=== PATIENT | female | born 1930 | race Caucasian/White ===

== ENCOUNTER 2017-01-28 09:15 | Inpatient (IN) | payer MEDICARE, BC ==
--- NOTE | ~2017-01-28 | CR72 ---
[facility] A Service of [facility] & [facility] RADIOLOGY TEXT RESULTS PATIENT: PATTIE MAYNARD LOCATION: [facility] CICCU3-15 : 31 UNIT #: [id number] AGE: [address]: Bridger White MD SEX: F ORDER DR: [id number] [facility] [address] [place], [place] [address] [id number] E MR#: [id number] Acc #: [id number] NAME: PATTIE MAYNARD : 1930 SEX: F STUDY DATE/TIME: 01/28/2017 9:59 UNIT: [facility] ROOM: STUDY DESCRIPTION: CR Chest Single View Portable Attending Physician: Willard Rizzo M.D. Ordering Physician: Willard Rizzo M.D. Primary Care Physician: Marisela Roberts A.P.R.N. MEDICAL IMAGING REPORT This report is preliminary unless electronic signature is present EXAM Portable chest HISTORY Shortness of air for 6 months but worse today. History of left lung mass removed. COMPARISON 11/29/2016 FINDINGS Portable view of the chest demonstrates left-sided volume loss with shift of mediastinal structures to the left of midline. There is opacification of the lower half of the left lung which may represent a combination of pleural effusion or atelectasis. Pleural effusion is favored as there is also a prominent left apical pleural cap of fluid. Right lung and remaining aerated left lung demonstrates diffuse parenchymal opacity which may represent a combination of interstitial alveolar edema. Probable trace amount of right pleural fluid. Suspected cardiomegaly though cardiac outline somewhat obscured due to shift and left lung opacity. Aortic atherosclerotic change is noted. Single lead pacemaker in place. No visible pneumothorax. Please note recent CT on 11/24/2016 also demonstrate extensive multifocal airspace disease. Dictated by... Sarah Beth Ames M.D. THIS IS AN ELECTRONICALLY VERIFIED REPORT Sarah Beth Ames M.D. at 01/28/2017 3:57 PM MARQUIS/mary TD: 01/28/2017 10:41 [facility] A Service of [facility] & [facility] RADIOLOGY TEXT RESULTS PATIENT: PATTIE MAYNARD LOCATION: [place] [id number] : 31 UNIT #: [id number] AGE: [address]: Bridger White MD SEX: F ORDER DR: JOB #: [id number] MEDICAL IMAGING REPORT Page 1 of 1 COPY
--- NOTE | ~2017-01-28 | CR7 ---
[facility] A Service of [facility] & [facility] RADIOLOGY TEXT RESULTS PATIENT: PATTIE MAYNARD LOCATION: [address]-15 : 31 UNIT #: [id number] AGE: [address]: Bridger White MD SEX: F ORDER DR: [id number] [facility] [address] [place], [place] [address] [id number] I MR#: [id number] Acc #: [id number] NAME: PATTIE MAYNARD : 1930 SEX: F STUDY DATE/TIME: 02/06/2017 6:52 UNIT: [facility] ROOM: [facility] STUDY DESCRIPTION: CR Abdomen Single AP View Attending Physician: Bridger White M.D. Ordering Physician: Bridger White M.D. Primary Care Physician: Marisela Roberts A.P.R.N. MEDICAL IMAGING REPORT This report is preliminary unless electronic signature is present EXAM KUB HISTORY High residual abdominal pain, possible ileus, KUB is obtained. Examination shows dilated small bowel loops filling the abdomen. There is contrast media identified in the rectosigmoid. Nasoenteric tube is in the stomach. Postsurgical changes are seen in the left upper and right upper quadrants. CONCLUSION Abnormal bowel gas pattern showing dilated small bowel loops filling the abdomen. There is gas and contrast media into the rectosigmoid. The findings favor adynamic ileus over obstruction. Dictated by... Andrea Bentley M.D. THIS IS AN ELECTRONICALLY VERIFIED REPORT Andrea Bentley M.D. at 02/06/2017 5:02 PM Maxim TD: 02/06/2017 09:58 JOB #: [id number] MEDICAL IMAGING REPORT Page 1 of 1 COPY
--- NOTE | ~2017-01-28 | CO ---
Unit #: [id number] #: [id number] Patient: PATTIE MAYNARD [id number] [address] [place], [place] [address] [id number] I MR#: [id number] NAME: PATTIE MAYNARD ROOM: [facility] Age: 86 Sex: F Admission Date: 01/28/2017 : 1930 Attending Physician: Bridger White M.D. Primary Care Physician: Marisela Roberts A.P.R.N. Consultation Date: 01/28/2017 CONSULTATION REPORT REASON FOR CONSULTATION Critical care management, respiratory failure. HISTORY OF PRESENT ILLNESS An 86-year-old female with a past medical history significant for congestive heart failure, hypertension, COPD, history of pulmonary embolism, and atrial fibrillation, presents with the complaint of shortness of breath and was found to be in respiratory failure and severe respiratory acidosis. She is currently awake on BiPAP and following commands. She is a Do Not Resuscitate. REVIEW OF SYSTEMS Unobtainable. PAST MEDICAL HISTORY As described above. SOCIAL HISTORY Nonsmoker, no alcohol, and no drug abuse. FAMILY HISTORY None as per record. MEDICATIONS As per MAR and have been reviewed. ALLERGIES Reviewed. PHYSICAL EXAMINATION VITAL SIGNS: Currently temperature is 98, pulse 75, respirations 29, and blood pressure is 138/45. NEUROLOGICAL: Awake, alert, and following commands. CARDIOVASCULAR: S1 plus S2. RESPIRATORY: Bilateral air entry, bilateral mild rhonchi. GASTROINTESTINAL: Nontender and soft. Bowel sounds positive. EXTREMITIES: No edema. DIAGNOSTIC STUDIES LABORATORY: Reviewed. IMAGING: Reviewed. ASSESSMENT Unit #: [id number] #: [id number] Patient: PATTIE MAYNARD 1. Acute hypoxic, hypercapnic respiratory failure. 2. Acute exacerbation of congestive heart failure. 3. Possible pneumonia. 4. Anemia. 5. Critically ill patient. PLAN At this point, my plan is to continue BiPAP support, repeat blood gas, add IV steroids, and continue IV antibiotic and diuretics. Cardiology following. GI and DVT prophylaxis. Patient is a Do Not Resuscitate. Please see orders for detailed plans. Total critical care time 65 minutes. Thank you very much for this consultation. Dictated by... Tita Nair M.D. MOHAMUD/oumou TD: 01/28/2017 16:40 JOB #: [id number] CONSULTATION REPORT Page 1 of 1 X Tita Nair MD CONSULTATION REPORT
--- NOTE | ~2017-01-28 | CR72 ---
[facility] A Service of [facility] & [facility] RADIOLOGY TEXT RESULTS PATIENT: PATTIE MAYNADR LOCATION: [place] [id number] : 31 UNIT #: [id number] AGE: [address]: Bridger White MD SEX: F ORDER DR: [id number] [facility] [address] [place], [place] [address] [id number] I MR#: [id number] Acc #: [id number] NAME: PATTIE MAYNARD : 1930 SEX: F STUDY DATE/TIME: 02/04/2017 5:45 UNIT: [facility] ROOM: [facility] STUDY DESCRIPTION: CR Chest Single View Portable Attending Physician: Bridger White M.D. Ordering Physician: Tita Nair M.D. Primary Care Physician: Marisela Roberts A.P.R.N. MEDICAL IMAGING REPORT This report is preliminary unless electronic signature is present EXAM Portable chest. INDICATIONS Respiratory failure, follow up. PROCEDURE Frontal view chest. COMPARIOSN 02/02/2017. FINDINGS Heart size stable. Persistent left basilar opacity and patchy opacities throughout the right lung. No new dense consolidation or pneumothorax. IMPRESSION Stable. Dictated by... Jose Rowland M.D. THIS IS AN ELECTRONICALLY VERIFIED REPORT Jose Rowland M.D. at 02/05/2017 9:58 PM EED/gz TD: 02/04/2017 09:10 JOB #: [id number] MEDICAL IMAGING REPORT Page 1 of 1 COPY
--- NOTE | ~2017-01-28 | CR72 ---
[facility] A Service of [facility] & [facility] RADIOLOGY TEXT RESULTS PATIENT: PATTIE MAYNARD LOCATION: [place] [address]15 : 31 UNIT #: [id number] AGE: [address]: Bridger White MD SEX: F ORDER DR: [id number] [facility] [address] [place], [place] [address] [id number] I MR#: [id number] Acc #: [id number] NAME: PATTIE MAYNARD : 1930 SEX: F STUDY DATE/TIME: 02/06/2017 4:45 UNIT: [facility] ROOM: [facility] STUDY DESCRIPTION: CR Chest Single View Portable Attending Physician: Bridger White M.D. Ordering Physician: Tita Nair M.D. Primary Care Physician: Marisela Roberts A.P.R.N. MEDICAL IMAGING REPORT This report is preliminary unless electronic signature is present EXAM Portable chest INDICATION Respiratory failure for the past 9 days. PROCEDURE Frontal view chest COMPARISON 02/05/2017 FINDINGS Heart size is stable. Persistent left basilar opacity and increasing right effusion. No visible pneumothorax. IMPRESSION Increasing right effusion. Persistent left basilar opacity. Dictated by... Jose Rowland M.D. THIS IS AN ELECTRONICALLY VERIFIED REPORT Jose Rowland M.D. at 02/06/2017 10:13 PM NOLAN/carlos TD: 02/06/2017 10:09 JOB #: [id number] MEDICAL IMAGING REPORT Page 1 of 1 COPY
--- NOTE | ~2017-01-28 | CR72 ---
[facility] A Service of [facility] & [facility] RADIOLOGY TEXT RESULTS PATIENT: PATTIE MAYNARD LOCATION: [place] [address]15 : 31 UNIT #: [id number] AGE: [address]: Bridger White MD SEX: F ORDER DR: [id number] [facility] [address] [place], [place] [address] [id number] I MR#: [id number] Acc #: [id number] NAME: PATTIE MAYNARD : 1930 SEX: F STUDY DATE/TIME: 01/29/2017 4:14 UNIT: [facility] ROOM: [facility] STUDY DESCRIPTION: CR Chest Single View Portable Attending Physician: Bridger White M.D. Ordering Physician: Tita Nair M.D. Primary Care Physician: Marisela Roberts A.P.R.N. MEDICAL IMAGING REPORT This report is preliminary unless electronic signature is present EXAM Single view chest INDICATIONS Respiratory failure. FINDINGS Single portable AP view of the chest compared to 01/28/2017. The heart is enlarged. There is background COPD. Bibasilar airspace opacities and/or pleural effusions, left greater than right are fairly similar to the prior study. No pneumothorax. IMPRESSION No significant change. Dictated by... Chad Friedman M.D. THIS IS AN ELECTRONICALLY VERIFIED REPORT Chad Friedman M.D. at 01/31/2017 12:23 AM ALYSON/beny TD: 01/29/2017 07:44 JOB #: [id number] MEDICAL IMAGING REPORT Page 1 of 1 COPY
--- NOTE | ~2017-01-28 | CO ---
Unit #: [id number] #: [id number] Patient: PATTIE MAYNARD [id number] [place] [id number] [place], [place] [address] [id number] I MR#: [id number] NAME: PATTIE MAYNARD ROOM: [facility] Age: 86 Sex: F Admission Date: 01/28/2017 : 1930 Attending Physician: Bridger White M.D. Primary Care Physician: Marisela Roberts A.P.R.N. CONSULTATION REPORT REASON FOR CONSULTATION Renal failure and hypernatremia. HISTORY OF PRESENT ILLNESS The patient is an 86-year-old female with a significant past medical history of cardiomyopathy but recent ejection fraction around 55% but mainly diastolic heart failure, mainly admitted to the hospital because of shortness of breath with some chest discomfort. The patient's baseline creatinine is around 1. It was 1.3 but sodium increased to 151 recently. The patient is still short of breath and she is on home oxygen. Recently, she also had a Dobbhoff tube placed yesterday because there is a likelihood of some aspiration going on. She also had some cough which was mainly nonproductive. Her heart rate was increased and she has atrial fibrillation with rapid ventricular rate and she was started on Cardizem drip too. She has a history of hypertension and blood pressure is stable. When I saw her, she was a little bit confused but she was complaining of some dry mucous membranes. She wanted to drink some Coke. Her BNP level was also elevated and no repeat level was done since admission. PAST MEDICAL HISTORY Significant for: 1. Coronary artery disease. 2. Chronic kidney disease. 3. Congestive heart failure, ejection fraction 30% in the past, now 55% with diastolic dysfunction. 4. History of atrial fibrillation, not on anticoagulation because of chronic anemia and GI bleed. 5. History of hypertension. 6. History of hypothyroidism. 7. History of peptic ulcer disease. 8. History of atrial fibrillation with rapid ventricular rate. 9. COPD. PAST SURGICAL HISTORY Significant for: 1. Pacemaker insertion. 2. History of angioplasty and stent placement. 3. History of colon resection. 4. History of carotid endarterectomy on the right side. SOCIAL HISTORY The patient lives at home. Her family lives close by. She used to smoke but she quit two years back. Unit #: [id number] #: [id number] Patient: PATTIE MAYNARD FAMILY HISTORY Noncontributory. MEDICATIONS Home medications were reviewed. They did include: 1. Lortab. 2. Symbicort. 3. Metoprolol. 4. Lasix. 5. Plavix. 6. Lipitor. 7. Carvedilol. 8. Synthroid. Not on SHWETHA inhibitor or angiotensin receptor mian. PHYSICAL EXAMINATION GENERAL: The patient is an elderly female, not in any acute distress. VITAL SIGNS: Last blood pressure is 155/60, pulse is around 85, temperature 98, respiratory rate is 18. HEAD/NECK: Pupils are reactive to light. Mucous membrane is dry. NECK: Supple. CHEST: The patient has bilateral air entry with rhonchi. No crackles, no wheeze. HEART: Irregular rate and rhythm with S1 and S2 audible, with mild systolic murmur. CHEST: Bilateral rhonchi with some fine crackles at the bases. ABDOMEN: Patient has a midline scar. Pulses are positive. No guarding, no rigidity. EXTREMITIES: Mild edema in both lower extremities. DIAGNOSTIC STUDIES LABORATORY: Labs show patient's sodium level is 151, potassium 3.9, bicarb 36, glucose 372, creatinine 1.1, albumin 3, total protein 5.2. Hemoglobin is 8.2. White cell count 3.6. IMAGING: Chest x-ray showed there are increased interstitial markings with bilateral airspace disease. ASSESSMENT AND PLAN 1. Hypernatremia. 2. Congestive heart failure: At this time, patient does have some bilateral infiltrate but patient has no significant edema so, clinically, there is some volume overload but lab nagel, patient has some contraction alkalosis with hyponatremia. 3. Diastolic heart failure, ejection fraction 55%. 4. Chronic kidney disease, likely stage 3. 5. Anemia, may be because of chronic kidney disease or may be because of history of peptic ulcer disease and gastrointestinal bleed. Workup is being done by GI. 6. Chronic kidney disease stage 3. 7. Contraction alkalosis with respiratory acidosis. PLAN Patient with significant hypernatremia. Sodium level is also high so looking at patient's labs, the patient seems to be volume depleted with contraction alkalosis. Increase sodium level but, clinically, patient does have bilateral lung infiltrate with some shortness of breath and Unit #: [id number] #: [id number] Patient: PATTIE MAYNARD diastolic heart failure. At this time, diuresis will be continued but, instead of loop diuretics, I would use thiazide diuretics and Diamox. That will help to get rid of some solutes and make sodium level better. (1) will be given at this time to improve patient's sodium level. Follow up with a BNP level, repeat labs tomorrow morning. Following with a urine output closely. If needed, instead of hydrochlorothiazide, metolazone can be given because that is much more potent thiazide diuretics than hydrochlorothiazide. Thank you for letting me evaluate this patient. Dictated by... Padmini Caicedo TD: 02/05/2017 10:25 JOB #: [id number] CONSULTATION REPORT Page 1 of 1 X Justo Everett MD X CONSULTATION REPORT
--- NOTE | ~2017-01-28 | OR ---
Unit #: [id number] #: [id number] Patient: PATTIE MAYNARD [id number] [address] [place], [place] [address] [id number] I MR#: [id number] NAME: PATTIE MAYNARD ROOM: [facility] Date of Procedure: 02/04/2017 Admission Date: 01/28/2017 Surgeon: Armando Lynch M.D. : 1930 Attending Physician: Bridger White M.D. Primary Care Physician: Marisela Roberts A.P.R.N. OPERATIVE REPORT ATTENDING PHYSICIAN Bridger White M.D PRIMARY CARE PHYSICIAN Marisela Roberts A.P.R.N. INDICATIONS FOR PROCEDURE Esophageal dysmotility and aspiration risk on a swallow evaluation. PROCEDURES PERFORMED Upper gastrointestinal endoscopy. POSTOPERATIVE DIAGNOSES Completely normal examination up to third part of duodenum. The patient did not have any mucosal abnormalities or whatsoever. The esophageal peristalsis was suggestive of somewhat chaotic hypertensive movements, but overall appearances were within the realm of normality. RECOMMENDATIONS A Dobhoff tube was placed at the end of the procedure for feeding. If the patient has significant aspiration risk, than one needs to consider possibility of enteral feeding using a PEG-tube. This will be discussed with the patient's family and with family doctor. SEDATION USED MAC. DESCRIPTION OF PROCEDURE Following detailed explanation of potential risks and complications of an upper endoscopy, namely perforation, bleeding, complication related to sedation, the patient was brought to GI lab and laid in the left lateral decubitus position. The procedure was done in intensive care unit at the patient's bedside. Lubricated tip of the Olympus video upper endoscope was passed through the bite block into the proximal esophagus under direct vision. The entire esophageal mucosa was examined and appeared normal. Z-line was nicely demarcated, there being no esophagitis or hiatus hernia. The scope was then advanced into the gastric cavity and the latter was insufflated. Mucosa of the fundus, body, and antrum was examined and appeared unremarkable. Pylorus was intubated with visualization of the normal duodenal bulb and second and third part of the duodenum. Upon withdrawal and retroflexion, incisura, cardia, and greater curve were examined and no additional findings noted. The scope was then withdrawn Unit #: [id number] #: [id number] Patient: MAYNARD,TEMPEST into the distal esophagus. The entire esophageal mucosa was examined all the way up to pharynx. No additional findings noted. The patient tolerated the procedure without any postprocedure complications. Dictated by... Padmini Nagel/joe TD: 02/05/2017 14:26 JOB #: [id number] CC: Padmini Garg A.P.R.N. Kusum Nigam, M.D. OPERATIVE REPORT Page 1 of 1 X Armando Lynch MD X PROCEDURE OPERATIVE NOTE
--- NOTE | ~2017-01-28 | CR72 ---
[facility] A Service of [facility] & [facility] RADIOLOGY TEXT RESULTS PATIENT: PATTIE MAYNARD LOCATION: [place] [address]- : [birth year] UNIT #: [id number] AGE: [address]: Bridger White MD SEX: F ORDER DR: [id number] [facility] [address] [place], [place] [address] [id number] I MR#: [id number] Acc #: [id number] NAME: PATTIE MAYNARD : 1930 SEX: F STUDY DATE/TIME: 02/10/2017 10:23 UNIT: [facility] ROOM: [facility] STUDY DESCRIPTION: CR Chest Single View Portable Attending Physician: Bridger White M.D. Ordering Physician: Poppy Tolliver A.P.R.N. Primary Care Physician: Marisela Roberts A.P.R.N. MEDICAL IMAGING REPORT This report is preliminary unless electronic signature is present EXAM Portable chest, 02/10 INDICATIONS Shortness of air. Follow up infiltrates and effusions. COMPARISON 02/09 FINDINGS Today's portable view of the chest shows no significant change from yesterday's study. There are uultz-ci-uppjkbrh bilateral effusions with bibasilar atelectasis. The enteric tube and PIC catheter and pacemaker are all stable. Dictated by... Margarito Goldsmith M.D. THIS IS AN ELECTRONICALLY VERIFIED REPORT Margarito Goldsmith M.D. at 02/11/2017 7:27 AM FEL/psc TD: 02/10/2017 17:20 JOB #: [id number] MEDICAL IMAGING REPORT Page 1 of 1 COPY
--- NOTE | ~2017-01-28 | CR72 ---
[facility] A Service of [facility] & [facility] RADIOLOGY TEXT RESULTS PATIENT: PATTIE MAYNARD LOCATION: [place] [address] : [birth year] UNIT #: [id number] AGE: [address]: Bridger White MD SEX: F ORDER DR: [id number] [facility] [address] [place], [place] [address] [id number] I MR#: [id number] Acc #: [id number] NAME: PATTIE MAYNARD : 1930 SEX: F STUDY DATE/TIME: 01/30/2017 4:30 UNIT: [facility] ROOM: [facility] STUDY DESCRIPTION: CR Chest Single View Portable Attending Physician: Bridger White M.D. Ordering Physician: Tita Nair M.D. Primary Care Physician: Marisela Roberts A.P.R.N. MEDICAL IMAGING REPORT This report is preliminary unless electronic signature is present EXAM Single view chest INDICATIONS Respiratory failure. Congestive heart failure. FINDINGS Single portable AP view of the chest compared to 01/29/2017. Heart is enlarged. There is increasing interstitial opacities in both lungs. There is a left basilar airspace opacity/effusion. No pneumothorax. IMPRESSION Slight increase in bilateral interstitial opacities suggesting increasing pulmonary edema and/or an atypical infection. Dictated by... Chad Friedman M.D. THIS IS AN ELECTRONICALLY VERIFIED REPORT Chad Friedman M.D. at 01/31/2017 12:20 AM Avery TD: 01/30/2017 06:20 JOB #: [id number] MEDICAL IMAGING REPORT Page 1 of 1 COPY
--- NOTE | ~2017-01-28 | EKG ---
PATIENT: PATTIE MAYNARD UNIT #: [id number] Ventricular Rate: 62 BPM Atrial Rate: 208 BPM QRS Duration: 118 ms Q-T Interval: 380 ms QTC Calculation(Bezet): 385 ms Calculated R [place]: -64 degrees Calculated T [place]: 116 degrees Diagnosis Line: Ventricular-paced rhythm with intrinsic complexes Diagnosis Line: Abnormal ECG Diagnosis Line: When compared with ECG of 14-MAR-2016 13:40, Diagnosis Line: Vent. rate has decreased BY 13 BPM Diagnosis Line: Confirmed by ADELSO AWAN MD ([id number]) on Diagnosis Line: 01/30/2017 8:44:09 AM INTERPRETING MD: LV PENDLETON
--- NOTE | ~2017-01-28 | CR63 ---
[facility] A Service of [facility] RADIOLOGY TEXT RESULTS PATIENT: PATTIE MAYNARD LOCATION: [facility] 548-01 : 31 UNIT #: [id number] AGE: [address]: Bridger White MD SEX: F ORDER DR: [id number] [facility] [address] [place], [place] [address] [id number] I MR#: [id number] Acc #: [id number] NAME: PATTIE MAYNARD : 1930 SEX: F STUDY DATE/TIME: 02/09/2017 8:59 UNIT: [facility] ROOM: [facility] STUDY DESCRIPTION: CR Chest 2 View Attending Physician: Bridger White M.D. Ordering Physician: Tita Nair M.D. Primary Care Physician: Marisela Roberts A.P.R.N. MEDICAL IMAGING REPORT This report is preliminary unless electronic signature is present EXAM PA and lateral chest radiograph. INDICATION Shortness of breath starting today. Patient has a history of congestive heart failure. Atrial fibrillation. Coronary artery disease and prior pulmonary embolus. FINDINGS Comparison is made to a prior study from February 06, 2017. Cardiomegaly and vascular congestion are unchanged. Right-sided PICC line extends into the superior vena cava. Patient has a weighted enteric feeding tube, although, I cannot see the distal tip. Left-sided pacemaker is present. No pneumothorax is identified. Patient has bilateral pleural effusions with more extensive consolidation noted at the lung bases bilaterally. Some of this may reflect compressive atelectasis with possibly superimposed infiltrates not excluded. Patient is noted to have compression deformity. What I think is probably T12 and L1 and even L3 incompletely evaluated on this study. However, these findings were also present on the prior CT from November of 2016. IMPRESSION 1. Cardiomegaly and vascular congestion. 2. Bilateral pleural effusions. 3. Bibasilar consolidation which may reflect some compressive atelectasis. Possibility of superimposed infection is not excluded. Dictated by... Gloria Urbina M.D. THIS IS AN ELECTRONICALLY VERIFIED REPORT Gloria Urbina M.D. at 02/12/2017 1:23 PM [facility] A Service of [facility] RADIOLOGY TEXT RESULTS PATIENT: PATTIE MAYNARD LOCATION: [facility] 548-01 : 31 UNIT #: [id number] AGE: [address]: Bridger White MD SEX: F ORDER DR: Rosario TD: 02/09/2017 17:15 JOB #: [id number] MEDICAL IMAGING REPORT Page 1 of 1 COPY
--- NOTE | ~2017-01-28 | CR72 ---
[facility] A Service of [facility] & [facility] RADIOLOGY TEXT RESULTS PATIENT: PATTIE MAYNARD LOCATION: [place] [id number] : 31 UNIT #: [id number] AGE: [address]: Bridger White MD SEX: F ORDER DR: [id number] [facility] [address] [place], [place] [address] [id number] I MR#: [id number] Acc #: [id number] NAME: PATTIE MAYNARD : 1930 SEX: F STUDY DATE/TIME: 02/05/2017 3:30 UNIT: [facility] ROOM: [facility] STUDY DESCRIPTION: CR Chest Single View Portable Attending Physician: Bridger White M.D. Ordering Physician: Tita Nair M.D. Primary Care Physician: Marisela Roberts A.P.R.N. MEDICAL IMAGING REPORT This report is preliminary unless electronic signature is present EXAM Portable chest INDICATION Respiratory failure PROCEDURE Frontal view chest COMPARISON 02/04/2017 FINDINGS Heart size unchanged. Persistent left basilar opacity. Right effusion unchanged. No visible pneumothorax. IMPRESSION Stable. Dictated by... Jose Rowland M.D. THIS IS AN ELECTRONICALLY VERIFIED REPORT Jose Rowland M.D. at 02/05/2017 9:53 PM Lorenza TD: 02/05/2017 08:59 JOB #: [id number] MEDICAL IMAGING REPORT Page 1 of 1 COPY
--- NOTE | ~2017-01-28 | CR72 ---
[facility] A Service of [facility] & [facility] RADIOLOGY TEXT RESULTS PATIENT: PATTIE MAYNARD LOCATION: [place] [address]-15 : 31 UNIT #: [id number] AGE: [address]: Bridger White MD SEX: F ORDER DR: [id number] [facility] [address] [place], [place] [address] [id number] I MR#: [id number] Acc #: [id number] NAME: PATTIE MAYNARD : 1930 SEX: F STUDY DATE/TIME: 01/31/2017 3:54 UNIT: [facility] ROOM: [facility] STUDY DESCRIPTION: CR Chest Single View Portable Attending Physician: Bridger White M.D. Ordering Physician: Bridger White M.D. Primary Care Physician: Marisela Roberts A.P.R.N. MEDICAL IMAGING REPORT This report is preliminary unless electronic signature is present EXAM Single view chest INDICATION COPD exacerbation. Pleural effusion. FINDINGS Single portable AP view of the chest compared to 01/30/2017. Heart is enlarged. There is increased interstitial markings in both lungs. Small bilateral pleural effusions are unchanged. No pneumothorax. IMPRESSION No significant change. Dictated by... Chad Friedman M.D. THIS IS AN ELECTRONICALLY VERIFIED REPORT Chad Friedman M.D. at 01/31/2017 5:43 AM ALYSON/krissy TD: 01/31/2017 04:48 JOB #: [id number] MEDICAL IMAGING REPORT Page 1 of 1 COPY
--- NOTE | ~2017-01-28 | CO ---
Unit #: [id number] #: [id number] Patient: PATTIE MAYNARD [id number] [address] [place], [place] [address] [id number] I MR#: [id number] NAME: PATTIE MAYNARD ROOM: [facility] Age: 86 Sex: F Admission Date: 01/28/2017 : 1930 Attending Physician: Bridger White M.D. Primary Care Physician: Marisela Roberts A.P.R.N. Consultation Date: 01/28/2017 CONSULTATION REPORT REASON FOR CONSULTATION Elevated troponin. HISTORY OF PRESENT ILLNESS This is an 86-year-old white female, who is well known to Dr. Hummel, who has a history of angioplasty and stent placement to the right coronary artery in 2007. In 2013, she had drug-eluting stents placed to the circumflex and mid LAD. Last cardiac catheterization was in 05/2015, where her stents were patent. She is known to have permanent atrial fibrillation and permanent pacemaker placement for sick sinus syndrome. The patient is admitted with acute respiratory failure. There is no family currently available at that time, but according to the emergency room records, she came in for worsening shortness of breath over the past 2 days. At the time of our exam, the patient was unresponsive and in acute distress. Her chest x-ray shows a large left pleural effusion. The patient was placed on BiPAP. BNP 690. She had elevation of troponin for which Cardiology was consulted of 0.68 at the time of admission. Her EKG shows no acute ischemic changes. PAST MEDICAL HISTORY 1. Angioplasty and stent to the right coronary artery in 2007. 2. Cardiac catheterization on 03/05/2014 shows left main normal. Ramus intermedius branch normal. Mid LAD 80%. Circumflex artery 90% between the first and second marginal branches. There was 50% stenosis distal to the second marginal branch. 3. Status post angioplasty with drug-eluting stents to the circumflex and mid LAD on 03/05/2014. 4. Cardiac catheterization on 06/01/2015 shows patent stents in the proximal and mid LAD as well as the right coronary artery. Circumflex artery was normal. 5. 2D echocardiogram on 11/23/2016 at [facility] showed an ejection fraction equal to 55% to 60% with moderate mitral regurgitation, moderate tricuspid regurgitation, and right ventricular systolic pressure of 55 mmHg. 6. Cardiac catheterization on 11/23/2016 at [facility], which showed left main normal. LAD mid stent widely patent. Mid LAD 30%. Circumflex artery proximal 40%. First obtuse marginal branch mid vessel stenosis of 30%. Right coronary artery with focal ISR. Mid right coronary artery 40%. No LV-gram. 7. Permanent atrial fibrillation, not on anticoagulation secondary to history of GI bleed. 8. Sick-sinus syndrome, status post permanent pacemaker ([employer]). 9. Hypertension. Unit #: [id number] #: [id number] Patient: PATTIE MAYNARD 10. Hyperlipidemia. 11. Chronic systolic heart failure with an ejection fraction of 30% to 35% in 2013, improved to 55% to 60% in 11/2016. 12. Hypothyroidism. 13. Chronic kidney disease. 14. COPD, on home oxygen. 15. Descending thoracic dilatation 4.4 cm and infrarenal abdominal aortic dilatation 2.7 mm in 02/2014. 16. Former smoker. 17. Peripheral vascular disease, status post left carotid endarterectomy. PAST SURGICAL HISTORY 1. Permanent pacemaker in 06/2014. 2. Carotid endarterectomy in 10/2011. 3. Colon resection. SOCIAL HISTORY The patient has been living with her son. She quit smoking 3 years ago, previously smoked half a pack of cigarettes a day. No records of illicit drug or alcohol use. FAMILY HISTORY Negative for coronary artery disease. ALLERGIES No known drug allergies. HOME MEDICATIONS Furosemide 20 mg b.i.d., levothyroxine 0.05 mg daily, aspirin 81 mg daily, Spiriva 1 inhalation daily, Combivent per mini nebs q.i.d. p.r.n., Lortab 10/325 one q.i.d. p.r.n., nitroglycerin 0.4 mg sublingual p.r.n., Protonix 40 mg daily, potassium chloride 10 mEq daily, Paxil 20 mg daily, Carafate 1 g t.i.d., trazodone 100 mg q.h.s., Plavix 75 mg daily, digoxin 0.125 mg daily, 10 mg t.i.d. REVIEW OF SYSTEMS Unable to obtain, because the patient is unresponsive. PHYSICAL EXAMINATION VITAL SIGNS: Blood pressure 179/80, heart rate 62. GENERAL: This is an 86-year-old white female, who is in acute respiratory distress. NEUROLOGIC: She is currently unresponsive. NECK: Trachea is midline. No thyromegaly or lymphadenopathy. With mild jugular venous distention. HEART: S1 and S2. Heart sounds are normal. No murmurs. No rubs or clicks. Irregularly irregular rhythm. LUNGS: With diminished breath sounds in the left lung. There are rales in both lung bases. ABDOMEN: Soft and nontender with bowel sounds are diminished. EXTREMITIES: Without leg edema. SKIN: Phan and dry. DIAGNOSTIC STUDIES LABORATORY RESULTS: Glucose 147, BUN 17, creatinine 1.0, sodium 138, potassium 4.1. White count 6.0, hemoglobin 9.9, hematocrit 31.5, platelet count 180. Troponin 0.68. Digoxin level of 2.8. BNP 652. Unit #: [id number] #: [id number] Patient: PATTIE MAYNARD IMAGING STUDIES: Chest x-ray noted for a large left pleural effusion. CARDIOVASCULAR STUDIES: EKG shows ventricularly paced rhythm. IMPRESSION 1. Acute hypoxic respiratory failure. 2. Severe chronic obstructive pulmonary disease with exacerbation. 3. Elevated troponin peak of 0.68 questionable type 2 non-ST segment myocardial infarction. 4. History of multiple percutaneous coronary intervention stents in the past. 5. Preserved left ventricular systolic function with an ejection fraction of 60%. 6. Acute on chronic systolic heart failure. 7. Digoxin toxicity. 8. Permanent atrial fibrillation. 9. Hypertension. 10. Hyperlipidemia. PLAN 1. Cardiology was consulted for elevated troponin. We will continue to trend troponin. Her last cardiac stent was widely patent with nonobstructive disease in 11/2016. 2. Lipid profile will be added and statin will be given once able to take oral. 3. Anticoagulate with aspirin and Lovenox. 4. The patient has a large left pleural effusion on chest x-ray, will need thoracentesis. 5. Continue on IV diuretics. 6. BiPAP support for respiratory failure. 7. Repeat digoxin level in the a.m. 8. We will follow the patient with you. Thank you for allowing us to assist with this patient's care. Dictated by... Jamel Thacker A.P.R.N. for RobertoPadmini May/joe TD: 01/30/2017 06:33 JOB #: [id number] CC: Marisela Roberts A.P.R.N. CONSULTATION REPORT Page 1 of 1 X Jamel Thacker APRN CONSULTATION REPORT
--- NOTE | ~2017-01-28 | CO ---
Unit #: [id number] #: [id number] Patient: PATTIE MAYNARD [id number] [address] [address] [id number] I MR#: [id number] NAME: PATTIE MAYNARD ROOM: [facility] Age: 86 Sex: F Admission Date: 01/28/2017 : 1930 Attending Physician: Bridger White M.D. Primary Care Physician: Marisela Roberts A.P.R.N. Consultation Date: 02/04/2017 CONSULTATION REPORT REASON FOR CONSULTATION Abnormal esophageal motility and high risk of aspiration on a swallow evaluation. HISTORY OF PRESENT ILLNESS Ms. Maynard is a very pleasant 86-year-old white female who has a longstanding history of coronary artery disease. The patient was admitted with acute respiratory failure and ammonia and elevated troponin on a background of coronary artery disease and ischemic cardiomyopathy and CHF. During her swallow evaluation, she has been found to have silent aspiration and high degree of esophageal dysmotility. In fact, swallow evaluation suggests the patient has very little esophageal motility. It is possible that the pneumonia might be a consequence of the latter. PAST MEDICAL HISTORY Significant for: 1. History of hypertension. 2. Hyperlipidemia. 3. Hypothyroidism. 4. COPD. 5. Atrial fibrillation. 6. Peripheral arterial disease. 7. Congestive heart failure. 8. Ischemic cardiomyopathy. 9. Sick sinus syndrome, status post pacemaker placement. 10. Coronary artery disease, status post PTCA and stent placement. PREVIOUS SURGERIES Included: 1. Partial colon resection. 2. Left carotid endarterectomy. 3. PCIs and stent placement. 4. Permanent pacemaker placement. MEDICATIONS Her medications at home include: 1. Lasix. 2. Levothyroxine. 3. Aspirin. 4. Spiriva. 5. Combivent. 6. Lortab. 7. Nitroglycerin. 8. Protonix. Unit #: [id number] #: [id number] Patient: PATTIE MAYNARD 9. Potassium chloride. 10. Paxil. 11. Carafate. 12. Trazodone. 13. Plavix. 14. Digoxin. ALLERGIES The patient has no known drug allergies. FAMILY HISTORY None of colon or pancreatic cancer or liver disease. SOCIAL HISTORY The patient does not drink alcohol but quit smoking about three years ago and used to smoke a half pack of cigarettes daily. She has been living with her son. REVIEW OF SYSTEMS A detailed review of organ systems does reveal significant weight loss. There is no history of fevers, chills, rigors. No history of headaches or seizures, chest pain or syncope. There is a history of shortness of breath. No history of cough, expectoration or hemoptysis. No history of dysuria, hematuria or pyuria. No history of focal seizures or extremity weakness. PHYSICAL EXAMINATION GENERAL APPEARANCE: She appears to be awake and alert and afebrile. VITAL SIGNS: Her vital signs are stable with a temperature of 98.9. She, however, has atrial fibrillation with rapid ventricular rate with a ventricular rate of about 140. Her respiratory rate is 18. Blood pressure is 167/69. She appears petite and weighs only 135 pounds. The baseline weight in the past has been about 140 to 150 pounds. She has mild pallor, there being no icterus or lymphadenopathy and grade 1 pitting peripheral edema. CARDIOVASCULAR EXAMINATION: Normal heart sounds. No murmurs. LUNGS: Auscultation over the lungs reveals normal breath sounds. Good air entry. ABDOMEN: Soft, nontender. Liver and spleen are not palpable. Bowel sounds normal. DIAGNOSTIC STUDIES LABORATORY: Lab evaluation shows a hemoglobin of 8.6 with normochromic normocytic indices. White count and platelet count are normal. INR is 1.0. Serum chemistry shows a BUN and creatinine of 49 and 1.4, potassium of 3.3, sodium 151 which is probably iatrogenic, albumin of 3.4. LFTs are otherwise normal. The patient does have adequate troponin on presentation. CLINICAL IMPRESSION The patient may have esophageal stricture or oropharyngeal dysphagia. A diagnostic endoscopy is warranted and will be scheduled later today. Pros and cons of the procedure and potential risks and complications discussed with patient as well as her son. It was also pointed out to the son that if patient does have significant oropharyngeal dysphagia that doesn't resolve in the next couple of days then an intermediate mode of feeding would be enteral feeding using a PEG placement. Thank you very much for asking me to see this pleasant woman. I Unit #: [id number] #: [id number] Patient: PATTIE MAYNARD appreciate the consult. Dictated by... Padmini Nagel/rajeev TD: 02/05/2017 07:26 JOB #: [id number] CONSULTATION REPORT Page 1 of 1 X Armando Lynch MD CONSULTATION REPORT
--- NOTE | ~2017-01-28 | FU ---
[facility] Nutrition Therapy DATE: 02/06/17 Patient: PATTIE MAYNARD Physician: SEDRICK [address] Room/Bed: [address], Zip: [place] [address] Admit Date: 01/28/17 Date of : [birth year] Height: 5 1 Weight: 143 65 NUTRITION MONITORING/FOLLOW-UP: Reason: Nutrition follow up Anthropometrics: Wt: 65 kg Labs: K+ 3.1 Gluc 219 BUN 40 Alb 2.8 Accuchecks 291 HgbA1C- WNL GFR 51.4 BNP 736 Meds: Reglan, zofran, MgSO4, KCl, lopressor, novolog, pepcid, synthroid (via DHT), solu-medrol I&O's: 9293/1591, last BM 02/06 Skin: No changes noted Edema: Generalized BUE/ BLE Estimated Nutrition Needs: 4193-4672 kcals (25-30 kcals/kg) 63-82 grams protein (1.0-1.3 grams/kg) Diet: Pureed with honey thick liquids + Jevity 1.5 Assessment: Chart reviewed, events noted. Pt remains in the ICU, and was previously receiving enteral nutrition with Jevity 1.5. Per pump history, the pt received 64% enteral goal volume x 24 hrs. Pt had increased residuals of 900 cc this AM, and KUB revealed a possible ileus. Enteral nutrition is being held at this time. Pt had video WORD PROCESSING MACHINE OPERATOR evaluation, and WORD PROCESSING MACHINE OPERATOR recommended pureed diet with honey thick liquids. RN reported at rounds that the pt may need long-term enteral access, and that the pt and family will be deciding on this. Pt is currently receiving medications via DHT. Of note, the pt continues with elevated blood glucose levels; however, A1C came back normal. Elevated blood glucose is likely d/t medication (solu-medrol) . Please see recommendations below. Pt received breakfast tray this AM, and did not feel well after eating per RN report. Nutrition diagnosis remains with updated evidence. Dx: Inadequate protein-energy intake RT clinical condition, respiratory distress, decreased appetite AEB WORD PROCESSING MACHINE OPERATOR evaluation, need for EN- ACTIVE Intervention: 1. Adjust EN goal rate for medication 2. Diet per WORD PROCESSING MACHINE OPERATOR recommendations as appropriate 3. PEG if deemed appropriate [facility] Nutrition Therapy DATE: 02/06/17 Patient: PATTIE MAYNARD Physician: SEDRICK Address: [address] [facility] Room/Bed: [address], Zip: [place] [address] Admit Date: 01/28/17 Date of : [birth year] Height: 5 1 Weight: 143 65 Monitoring, Evaluation and Goals: 1. Oral intake; diet advancement (MET), tolerate >50% of meals (NOT MET) 2. Improve labs; glucose (NOT MET), Na+ (MET), BUN (IN PROGRESS), GFR (IN PROGRESS) 3. Weight; prevent unintentional weight loss (IN PROGRESS) 4. Skin; prevent skin breakdown (IN PROGRESS) NEW GOALS: 1. Oral intake; if safe for PO intake, tolerate >50% of meals 2. Improve labs; glucose, BUN, K+, GFR 3. Weight; prevent unintentional weight loss 4. Skin; prevent breakdown 5. EN; provide >80% goal volume x 24 hrs Recommendations: 1. Continue enteral nutrition once medically feasible (noting ileus). Resume Jevity 1.5 @ 20 mL/hr x 22 hrs. Increase by 10 mL q 4 hrs as tolerated to goal of 55 mL/hr x 22 hrs. This will provide: 1815 kcals/ 77 grams protein/ 920 mL free H20 PLEASE NOTE: NOW THAT THE PT IS RECEIVING SYNTHROID VIA DHT, EN WILL NEED TO BE HELD FOR ONE HOUR BEFORE AND ONE HOUR AFTER ADMINISTRATION OF SYNTHROID 2. If the pt is deemed safe for PO intake (noting ileus), continue to advance diet as recommend by WORD PROCESSING MACHINE OPERATOR. 3. Magic Cup TID for supplemental nutrition if diet continues. 4. RD will continue to follow up and adjust enteral nutrition recommendations as appropriate based on PO intake. 5. Continue Reglan to promote GI motility. Monitor for symptoms of GI intolerance and residuals per protocol. Status: Pt is at moderate nutritional risk. RD will continue to follow hospital course. Respectfully, SEEMA FLORES RD, LD [employer] [facility] [employer] Nutrition Therapy DATE: 02/06/17 Patient: PATTIE MAYNARD Physician: SEDRICK Address: [address] [facility] Room/Bed: [address], Zip: [place] [address] Admit Date: 01/28/17 Date of : [birth year] Height: 5 1 Weight: 143 65 [facility] cc: client file
--- NOTE | ~2017-01-28 | CR7 ---
[facility] A Service of [facility] & [facility] RADIOLOGY TEXT RESULTS PATIENT: PATTIE MAYNARD LOCATION: [address] : [birth year] UNIT #: [id number] AGE: [address]: Bridger White MD SEX: F ORDER DR: [id number] [facility] [address] [place], [place] [address] [id number] I MR#: [id number] Acc #: [id number] NAME: PATTIE MAYNARD : 1930 SEX: F STUDY DATE/TIME: 02/05/2017 09:10 UNIT: [facility] ROOM: [facility] STUDY DESCRIPTION: CR Abdomen Single AP View Attending Physician: Bridger White M.D. Ordering Physician: Bridger White M.D. Primary Care Physician: Marisela Roberts A.P.R.N. MEDICAL IMAGING REPORT This report is preliminary unless electronic signature is present EXAM Abdomen one-view 02/05/2017 0910 hours HISTORY 86-year-old woman for evaluation of new Dobbhoff tube placement. COMPARISON CT abdomen 03/08/2014. FINDINGS Single supine view of the abdomen is performed. The film is limited as the right abdomen, right flank and pelvis are excluded. There is a Dobbhoff tube present with tip directed leftward in the left mid abdomen. There are gas-filled loops of small bowel and colon. Surgical clips are present in the left upper quadrant. Review of prior CT 03/08/2014 suggests that the patient has had a surgical procedure likely with a gastrojejunostomy in the left upper quadrant. The tip of the tube is felt likely to be in the distal remaining stomach or the proximal jejunal loop. IMPRESSION The tip of the Dobbhoff tube is in the left flank directed leftward. There are surgical clips in the left upper quadrant. Prior CT 03/08/2014 suggests the patient has had prior surgery in the left upper quadrant with a probable gastrojejunostomy. The tip of the tube is felt to either be in the distal aspect of the remaining stomach or the proximal jejunum which cannot be determined by this single view. Dictated by... Candi Garner M.D. [facility] A Service of [facility] & [facility] RADIOLOGY TEXT RESULTS PATIENT: PATTIE MAYNARD LOCATION: [address] : [birth year] UNIT #: [id number] AGE: [address]: Bridger White MD SEX: F ORDER DR: THIS IS AN ELECTRONICALLY VERIFIED REPORT Candi Garner M.D. at 02/05/2017 2:30 PM EMILY/rut TD: 02/05/2017 11:03 JOB #: [id number] MEDICAL IMAGING REPORT Page 1 of 1 COPY
--- NOTE | ~2017-01-28 | HP ---
Unit #: [id number] #: [id number] Patient: PATTIE MAYNARD [id number] [address] [address] [id number] I MR#: [id number] NAME: PATTIE MAYNARD ROOM: 12410 Age: 86 Sex: F Admission Date: 01/28/2017 : 1930 Attending Physician: Bridger White M.D. Primary Care Physician: Marisela Roberts A.P.R.N. HISTORY AND PHYSICAL ADMISSION DIAGNOSES 1. Acute respiratory failure. 2. Pneumonia. 3. Elevated troponins. 4. History of coronary artery disease. 5. History of ischemic cardiomyopathy and CHF. 6. Peripheral vascular disease. 7. Hypertension. 8. History of anemia. 9. Hypothyroidism. 10. History of COPD. 11. History of PE. 12. History of A fib. 13. History of sick sinus syndrome status post pacemaker placement. HISTORY OF PRESENT ILLNESS Ms. Maynard is an 86-year-old female, a patient of Dr. Palmer, who [facility] secondary to increasing shortness of air and dyspnea. Initial evaluation in the ER found the patient with elevated troponins along with pneumonia on the imaging studies. Patient was started on triple IV antibiotics for healthcare-acquired pneumonia coverage. Shortly after, the patient started to deteriorate. ABGs were drawn, which showed the patient in acute hypercapnic respiratory failure with respiratory acidosis with pH of 7.016. Patient was started on BiPAP. According to ER physician, the patient and the patient's son currently expressing wishes to be a DNR and [id number], which at this point, will be respected. Other than shortness of air and dyspnea, the patient denies any chest pain. Denies any headache or dizziness. Denies any fever or chills, nausea, vomiting, diarrhea or abdominal pain. REVIEW OF SYSTEMS A 12-point review of systems on this patient is basically negative except as above. PAST MEDICAL HISTORY Significant for coronary artery disease status post PCI with stent, history of sick sinus syndrome status post permanent pacemaker, history of CHF and ischemic cardiomyopathy, history of peripheral vascular disease, hypertension, dyslipidemia, hypothyroidism, COPD, PE, A fib. PAST SURGICAL HISTORY Significant for colon resection, EGD and colonoscopy, left carotid Unit #: [id number] #: [id number] Patient: PATTIE MAYNARD endarterectomy, PCI with stents, permanent pacemaker placement. HOME MEDICATIONS I do not have in front of me, but this will be clarified with the pharmacy, and the patient will be restarted accordingly. SOCIAL HISTORY No current history of tobacco, alcohol or illicit drug use. FAMILY HISTORY Family history is unremarkable. ALLERGIES No known drug allergies. PHYSICAL EXAMINATION GENERAL: The patient is an 86-year-old ill-appearing female in no acute distress. VITAL SIGNS: BP 171/79, heart rate 110, respirations 22, temperature 97.2. HEENT: Head is atraumatic. Pupils are equal, round and reactive to light and accommodation. Extraocular muscles intact. Oropharynx clear. Limited exam with BiPAP. NECK: Neck is supple. No masses. No obvious JVD. No bruits. RESPIRATORY: Chest is diminished bilaterally with some rhonchi. CARDIOVASCULAR: S1, S2. No murmurs. ABDOMEN: Abdomen is soft, nontender, nondistended. EXTREMITIES: Lower extremities without any significant cyanosis, clubbing or edema. NEUROLOGIC: Patient without any focal deficits. DIAGNOSTIC STUDIES IMAGING: Chest x-ray - Opacification of the lower half of the left lung. May represent combination of pleural effusion and atelectasis. Diffuse parenchymal opacity in the left lung. LABS: Chemistry significant for blood glucose 147, GFR 51.4, chloride 99, CO2 of 32, albumin 3.2, indirect bili 1. Troponin 0.16. Initial was 0.68. Hematology - H and H 9.9 and 31.5, white count 6, platelets 180. ASSESSMENT AND PLAN 1. Acute respiratory failure. Continue BiPAP. Admit to ICU. Start on DuoNeb. Pulmonary, Dr. Nair, has been consulted. 2. Healthcare-acquired pneumonia. Continue triple IV antibiotic coverage. 3. Elevated troponin with history of coronary artery disease status post PCI with stent. Trend troponins. Dr. Hummel to follow. 4. History of CHF and ischemic cardiomyopathy with elevated BNP. Malenae, again, per cardiology. 5. History of peripheral vascular disease status post carotid endarterectomy. 6. History of sick sinus syndrome and A fib, status post permanent pacemaker. 7. History of PE in the past. 8. Hypertension. 9. Dyslipidemia. 10. Continue with GI and DVT prophylaxis. 11. So, the patient is a DNR, co-bxj-zjupnfac; however, will be admitted Unit #: [id number] #: [id number] Patient: PATTIE MAYNARD to ICU. Continue BiPAP at this point. Dictated by Padmini Garg/sirena TD: 01/28/2017 14:26 JOB #: [id number] HISTORY AND PHYSICAL Page 1 of 1 X Bridger White MD HISTORY AND PHYSICAL
--- NOTE | ~2017-01-28 | A ---
[facility] Nutrition Therapy DATE: 02/01/17 Patient: PATTIE MAYNARD Physician: SEDRICK Address: [address] [facility] Room/Bed: [address], Zip: [place] [address] Admit Date: 01/28/17 Date of : [birth year] Height: 5 1 Weight: 141 64 NUTRITIONAL ASSESSMENT: REASON: NPO status in the ICU/ Eating poorly previously 86 yo female admitted for SOA, PNA PMH: Respiratory failure, CHF, HTN, HLD, hypothyroidism, CAD, CKD, Afib, COPD, anemia, PE, GERD, PVD, s/p pacemaker placement, s/p colon resection Anthropometrics: Ht: 61" Adm wt: 63 kg BMI: 26.2 Labs: Na+ 146 Gluc 193 BUN 48 GFR 37.4 BNP 821 Meds: Furosemide, synthroid (IV), solu-medrol, zofran I/O & Bowel function: 256/875, last BM 01/27 Skin Integrity: Bruise BUE Blanchable redness to buttocks Dry skin- generalized Skin tear LFA Edema: generalized Estimated Nutrition Needs: 5468-7036 kcals (25-30 kcals/kg) 63-82 grams protein (1.0-1.3 grams/kg) 1500 mL fluid daily or per MD orders Assessment: Chart reviewed, events noted. Pt admitted on 01/28 to ICU for SOA, PNA. Pt has been on and off continuous BiPAP, initially ordered a regular diet. It is likely that the pt aspirated, and HEAD WAITER evaluated the pt. HEAD WAITER recommended pureed diet + nectar thick liquids, which was ordered for the pt on 01/31. Pt is now NPO again on continuous BiPAP. HEAD WAITER recommended a video swallow evaluation, which the pt may have tomorrow pending respiratory status. RD spoke with the pt's family at bedside, as the pt is on continuous BiPAP. Pt's family reports that her appetite has decreased recently, and her intake has been fair. Per family report, it seems the pt was eating well prior to hospitalization. Family denies that the pt has lost any weight recently. Please see recommendations below. Dx: Inadequate protein-energy intake RT clinical condition, respiratory distress, decreased appetite AEB NPO status, HEAD WAITER evaluation. Intervention: [facility] Nutrition Therapy DATE: 02/01/17 Patient: PATTIE MAYNARD Physician: SEDRICK Address: [address] Room/Bed: [address], Zip: [place] [address] Admit Date: 01/28/17 Date of : [birth year] Height: 5 1 Weight: 141 64 1. Advance diet per HEAD WAITER recommendations once appropriate 2. EN if the pt is unable to take nutrition PO Monitoring, Evaluation and Goals: 1. Oral intake; diet advancement, HEAD WAITER, tolerate >50% of meals if diet advances 2. Improve labs; glucose, Na+, BUN, GFR 3. Weight; prevent unintentional weight loss 4. Skin; prevent skin breakdown Recommendations: 1. Following video swallow evaluation, advance diet per HEAD WAITER recommendations. Recommend heart healthy diet + 6 small meals + Magic Cup TID as appropriate based on PO intake. 2. If the pt is unable to take nutrition PO, consider obtaining enteral access and initiating enteral nutrition with Jevity 1.5. If ordered by MD, start Jevity 1.5 @ 20 mL/hr, increasing by 10 mL q 8 hrs as tolerated to goal of 50 mL/hr. This would provide: 1800 kcals/ 77 grams protein/ 912 mL free H20 *Add 200 mL free H20 flushes TID or per MD orders (noting h/o CHF, CKD, elevated Na+) Pt is at moderate nutritional risk. RD will follow hospital course per protocol. Respectfully, SEEMA FLORES RD, LD [employer] [facility] cc: client file
--- NOTE | ~2017-01-28 | CR72 ---
[facility] A Service of [facility] & [facility] RADIOLOGY TEXT RESULTS PATIENT: PATTIE MAYNARD LOCATION: [place] [id number] : [birth year] UNIT #: [id number] AGE: [address]: Bridger White MD SEX: F ORDER DR: [id number] [facility] [address] [place], [place] [address] [id number] I MR#: [id number] Acc #: [id number] NAME: PATTIE MAYNARD : 1930 SEX: F STUDY DATE/TIME: 02/02/2017 2:30 UNIT: [facility] ROOM: [facility] STUDY DESCRIPTION: CR Chest Single View Portable Attending Physician: Bridger White M.D. Ordering Physician: Tita Nair M.D. Primary Care Physician: Marisela Roberts A.P.R.N. MEDICAL IMAGING REPORT This report is preliminary unless electronic signature is present EXAM Portable chest INDICATION Respiratory failure today. PROCEDURE Frontal view chest COMPARISON 02/01/2017 FINDINGS The heart size unchanged. Persistent pleural fluid. No new dense consolidation or pneumothorax. IMPRESSION Stable. Dictated by... Jose Rowland M.D. THIS IS AN ELECTRONICALLY VERIFIED REPORT Jose Rowland M.D. at 02/02/2017 9:57 PM Lorenza TD: 02/02/2017 09:56 JOB #: [id number] MEDICAL IMAGING REPORT Page 1 of 1 COPY
--- NOTE | ~2017-01-28 | CR72 ---
[facility] A Service of [facility] & [facility] RADIOLOGY TEXT RESULTS PATIENT: PATTIE MAYNARD LOCATION: [place] [id number] : [birth year] UNIT #: [id number] AGE: [address]: Bridger White MD SEX: F ORDER DR: [id number] [facility] [address] [place], [place] [address] [id number] I MR#: [id number] Acc #: [id number] NAME: PATTIE MAYNARD : 1930 SEX: F STUDY DATE/TIME: 02/01/2017 5:10 UNIT: [facility] ROOM: [facility] STUDY DESCRIPTION: CR Chest Single View Portable Attending Physician: Bridger White M.D. Ordering Physician: Tita Nair M.D. Primary Care Physician: Marisela Roberts A.P.R.N. MEDICAL IMAGING REPORT This report is preliminary unless electronic signature is present EXAM Single view chest INDICATION Shortness of air. Respiratory failure. FINDINGS Single portable AP view of the chest compared to 01/31/2017. Right PICC terminates over the SVC. Heart and mediastinal contours are unchanged. Increased interstitial markings and bilateral airspace opacity/effusions are similar to the prior study. No pneumothorax. IMPRESSION 1. Placement of a right PICC. The PICC terminates over the SVC. 2. Otherwise no significant change. Dictated by... Chad Friedman M.D. THIS IS AN ELECTRONICALLY VERIFIED REPORT Chad Friedman M.D. at 02/05/2017 7:03 AM ALYSON/rut TD: 02/01/2017 06:26 JOB #: [id number] MEDICAL IMAGING REPORT Page 1 of 1 COPY
--- NOTE | ~2017-01-28 | DS ---
Unit #: [id number] #: [id number] Patient: PATTIE MAYNARD [id number] [address] [address] [id number] I MR#: [id number] NAME: PATTIE MAYNARD ROOM: 548 Age: 86 Sex: F Admission Date: 01/28/2017 : 1930 Discharge Date: 02/11/2017 Attending Physician: Bridger White M.D. Primary Care Physician: Marisela Roberts A.P.R.N. DISCHARGE SUMMARY FINAL DIAGNOSES 1. Acute respiratory failure. 2. Acute exacerbation of chronic obstructive pulmonary disease. 3. Aspiration pneumonia. 4. Congestive heart failure exacerbation. 5. Acute kidney injury. 6. Atrial fibrillation. 7. Coronary artery disease. 8. Diastolic congestive heart failure with ejection fraction of 55%. 9. Hypertension. 10. Anemia. HOSPITAL COURSE The patient was admitted to the hospital on January 28, 2017. He has a history of angioplasty and stent placement to the right coronary artery and has significant cardiac disease. Patient was admitted with acute respiratory failure, was diagnosed with aspiration pneumonia. Patient does have history of severe COPD, and he did have exacerbation of COPD too. Troponin was elevated and there is a questionable non ST segment myocardial infarction. Patient had a lengthy stay. The patient's prognosis was poor and had been explained to patient's family. Patient was made DNR, comfort care, and hospice care. The patient was transferred to hospice on February 11, 2017. Dictated by... Padmini Gutierrez TD: 03/19/2017 08:58 JOB #: [id number] Unit #: [id number] #: [id number] Patient: PATTIE MAYNARD DISCHARGE SUMMARY Page 1 of 1 X Jaclyn Brooks MD X DISCHARGE SUMMARY
--- NOTE | ~2017-01-28 | CR7 ---
[facility] A Service of [facility] & [facility] RADIOLOGY TEXT RESULTS PATIENT: PATTIE MAYNARD LOCATION: [facility] [address] : [birth year] UNIT #: [id number] AGE: [address]: Bridger White MD SEX: F ORDER DR: [id number] [facility] [address] [place], [place] [address] [id number] I MR#: [id number] Acc #: [id number] NAME: PATTEI MAYNARD : 1930 SEX: F STUDY DATE/TIME: 02/07/2017 13:39 [facility]: [facility] STUDY DESCRIPTION: CR Abdomen Single AP View Attending Physician: Bridger White M.D. Ordering Physician: Bridger White M.D. Primary Care Physician: Marisela Roberts A.P.R.N. MEDICAL IMAGING REPORT This report is preliminary unless electronic signature is present EXAM Portable abdomen HISTORY SUPPLIED Abdominal distension, ileus FINDINGS An AP view of the abdomen obtained. Redemonstrated is contrast media in the rectosigmoid; the amount has not changed from the previous studies. Small bowel distension has decreased. Nasoenteric tube is in the stomach. CONCLUSION Slight decrease in small bowel distension compared with the last study; continues to be contrast media throughout the rectosigmoid, unchanged. Dictated by... Andrea Bentley M.D. THIS IS AN ELECTRONICALLY VERIFIED REPORT Andrea Bentley M.D. at 02/08/2017 6:06 PM LINA/leslye TD: 02/07/2017 17:46 JOB #: [id number] MEDICAL IMAGING REPORT Page 1 of 1 COPY
[~2017-01-28 09:15] MED LIST: ACETAMINOPHEN325 MG PO; ADCIRCA20 MG PO; ALBUTEROL MININEB INH; AMBIEN PO; AMIODARONE HCL100 MG PO; ASPIRIN EC81 M1 PO; ASPIRIN PO; ASPIRIN81 M2 PO; ASPIRIN81 MG PO; AZOR; AZOR 10-40 MG1 UDTAB PO; AZOR 10/40 MG T1 TAB PO; AZOR PO; B COMPLEX1 CA1 PO; BAYER CHEWABLE81 MG PO; BENICAR PO; BENICAR20 MG PO; BENZONATATE PO; BETAPACE80 MG PO; BUMETANIDE0.5 MG PO; BUMETANIDE1 MG PO; BUMETANIDE2 M1; BUMEX1 MG PO; BUMEX2 MG PO; CARAFATE1 G PO; CARAFATE1 GM PO; CARVEDILOL25 MG PO; CLOPIDOGREL BIS75 MG PO; CLOPIDOGREL75 MG PO; COMBIVENT U/D3 M2 INH; COREG PO; COREG12.5 MG PO; COREG3.125 MG PO; COUMADIN PO; CRESTOR PO; CRESTOR40 MG PO; DEXILANT60 MG PO; DIGOX0.125 MG PO; DILTIAZEM 24HR120 M1 PO; DILTIAZEM 24HR120 MG PO; ENTRESTO 24 MG1 EACH PO; FERRO-TIME325 MG PO; FERROUS SU325 ( 65 ) PO; FLORASTOR250 M1 PO; FUROSEMIDE40 MG PO; GENESUPP-5001 CAP PO; HCTZ PO; HYDRALAZINE HCL25 MG PO; HYDROCHLOROTHIA25 MG PO; HYDROCODON-ACE1 EAC5 PO; IPRAT-ALBUT 0.5-3 ML INH; IRON325 ( 651 PO; K-DUR20 ME1 PO; LANOXIN IV; LASIX PO; LASIX20 MG PO; LEVOFLOXACIN500 MG PO; LIPITOR40 MG PO; LISINOPRIL2.5 MG PO; LOPRESSOR PO; LORTAB 10-3251 EACH PO; LOVENOX80 MG/0.8 IJ; LOVENOX80 MG/0.8 IN; MONTELUKAST SOD10 MG PO; MUCINEX DM ER1 EACH PO; NASONEB NASAL1 EACH INH; NEURONTIN100 MG PO; NEXIUM PO; NEXIUM20 MG PO; NEXIUM40 MG/PACK PO; NITROGLYGERIN0.4 MG SL; NORCO 10-325 TA1 TAB PO; NORCO 5/325 TAB1 TAB; OXYGEN INH; PAIN RELIEF325 M1 PO; PANTOPRAZOLE SO40 MG PO; PAROXETINE HCL20 M1 PO; PAXIL PO; PLAVIX PO; POTASSIUM CHLO10 ME1 PO; PREDNISONE PO; PREDNISONE1 MG PO; PROTONIX PO; SEPTRA DS; SILDENAFIL20 MG PO; SINGULAIR PO; SPIRIVA18 MCG INH; SYMBICORT INH; SYMBICORT80 INH; SYNTHROID0.05 MG PO; SYNTHROID75 MCG PO; VIBRAMYCIN100 M1 PO; ZITHROMAX PO; ZOCOR PO; ZOLPIDEM TARTRAT5 M1 PO; [UNRECOGNIZED DRUG - OTHER] PO
[2017-01-28 10:26] LABS: BASOPHIL% 0.6 % (0-2.5); EOSINOPHIL# 0.1 X10e3 (0-0.7); EOSINOPHIL% 1.2 % (0.0-7.0); HEMATOCRIT 31.5 % (35.0-45.0); HEMOGLOBIN 9.9 gm/dL (12.0-16.0); LYMPHOCYTE# 0.4 X10e3 (1.0-3.5); LYMPHOCYTE% 6.5 % (17.0-45.0); MEAN CELL VOLUME 87.7 FL (83-96); MEAN CORPUSCULAR HEMOGLOBIN 27.5 PG (28-34); MEAN CORPUSCULAR HGB CONC 31.4 g/dL (30-36); MEAN PLATELET VOLUME 8.3 FL (6.5-11.5); MONOCYTE# 0.2 X10e3 (0-1.0); MONOCYTE% 3.4 % (3.0-12.0); NEUTROPHIL# 5.3 X10e3 (1.5-7.1); NEUTROPHIL% 88.3 % (40-75); PLATELET COUNT 180 X10e3 (140-420); RED BLOOD COUNT 3.59 X10e (3.90-5.30)
[2017-01-28 10:36] LABS: DIFF IND NO
[2017-01-28 10:44] LABS: PARTIAL THROMBOPLASTIN TIME 27.3 SECONDS (23.5-31.3); PROTHROMBIN TIME (PATIENT) 10.7 SECONDS (9.6-11.5)
[2017-01-28 10:48] LABS: POC - CKMB 1.9 ng/mL (0.0-7.9); POC - TROPONIN 0.68 ng/mL (<=0.05)
[2017-01-28 10:54] LABS: ALBUMIN SERUM 3.2 g/dL (3.5-5.0); BILIRUBIN, DIRECT 0.2 mg/dL (0.0-0.2); BILIRUBIN,TOTAL 1.2 mg/dL (0.2-2.0); CALCIUM SERUM 8.4 mg/dL (8.4-10.2); GLOM FILT RATE Estimated 51.4 mL/min (>60); POTASSIUM 4.1 mmol/L (3.5-5.1); PROTEIN TOTAL SERUM 6.3 g/dL (6.0-8.3)
[2017-01-28 11:00] LABS: DIGOXIN (LANOXIN) 2.8 ng/ml (1.0-2.0)
[2017-01-28] MEDS ORDERED: PROTONIX PO (11:24)
[2017-01-28] MEDS ORDERED: KCL PO (11:25)
[2017-01-28] MEDS ORDERED: PAXIL PO (11:26)
[2017-01-28] MEDS ORDERED: CARAFATE1 GM PO (11:26)
[2017-01-28] MEDS ORDERED: TRAZODONE HCL100 MG PO (11:26)
[2017-01-28] MEDS ORDERED: CLOPIDOGREL75 MG PO (11:30)
[2017-01-28] MEDS ORDERED: DIGOXIN125 MCG PO (11:30)
[2017-01-28] MEDS ORDERED: SILDENAFIL20 MG PO (11:33)
[2017-01-28 13:15] LABS: ARTERIAL BLOOD GAS CARBOXY HB 1.4 %sat (0.0-9.0); ARTERIAL BLOOD GAS MET HB 0.8 %sat (0.0-2.0)
[2017-01-28 13:21] LABS: ARTERIAL BLOOD GAS pH 7.016 (7.350-7.450); ARTERIAL DRAW? YES
[2017-01-28 13:22] LABS: ARTERIAL BLOOD GAS DELIVERY BIPAP; ARTERIAL BLOOD GAS PCO2 >120.0 mmHg (35.0-45.0)
[2017-01-28 13:41] LABS: CHOLESTEROL 148 mg/dL (0-200); HDL CHOLESTEROL 43 mg/dL (35-95); LDL CHOLESTEROL 76 mg/dL (-130); LDL/HDL RATIO 2 RATIO (0-4); TRIGLYCERIDES 147 mg/dL (10-160)
[2017-01-28 16:14] LABS: ARTERIAL BLD GAS O2 SATURATION 97.5 % (90.0-100.0); ARTERIAL BLOOD GAS CARBOXY HB 1.4 %sat (0.0-9.0); ARTERIAL BLOOD GAS HCO3 31.2 mmol/L; ARTERIAL BLOOD GAS MET HB 0.5 %sat (0.0-2.0); ARTERIAL BLOOD GAS pH 7.268 (7.350-7.450)
[2017-01-28 16:15] LABS: ARTERIAL BLOOD GAS PCO2 68.3 mmHg (35.0-45.0)
[2017-01-28 16:16] LABS: ARTERIAL BLOOD GAS ART SITE RIGHT BRACHIAL; ARTERIAL BLOOD GAS DELIVERY BIPAP 16/6; ARTERIAL DRAW? YES
[2017-01-28 20:10] LABS: CK TOTAL 25 IU/L (26-140)
[2017-01-29 03:29] LABS: BASOPHIL% 0.2 % (0-2.5); DIFF IND NO; EOSINOPHIL% 0.1 % (0.0-7.0); HEMATOCRIT 29.6 % (35.0-45.0); HEMOGLOBIN 9.4 gm/dL (12.0-16.0); LYMPHOCYTE# 0.3 X10e3 (1.0-3.5); LYMPHOCYTE% 9.5 % (17.0-45.0); MEAN CELL VOLUME 87.4 FL (83-96); MEAN CORPUSCULAR HEMOGLOBIN 27.7 PG (28-34); MEAN CORPUSCULAR HGB CONC 31.7 g/dL (30-36); MEAN PLATELET VOLUME 9.1 FL (6.5-11.5); MONOCYTE# 0.1 X10e3 (0-1.0); MONOCYTE% 4.2 % (3.0-12.0); NEUTROPHIL# 2.7 X10e3 (1.5-7.1); PLATELET COUNT 152 X10e3 (140-420); RED BLOOD COUNT 3.38 X10e (3.90-5.30); RED CELL DISTRIBUTION WIDTH 15.8 % (11.0-15.5); WHITE BLOOD COUNT 3.2 X10e3 (4.0-10.5)
[2017-01-29 03:38] LABS: CK TOTAL 19 IU/L (26-140)
[2017-01-29 04:25] LABS: BILIRUBIN,TOTAL 1.3 mg/dL (0.2-2.0); BUN/CREATININE RATIO 16.92; CALCIUM SERUM 7.8 mg/dL (8.4-10.2); CREATININE SERUM 1.3 mg/dL (0.6-1.4); GLOM FILT RATE Estimated 37.4 mL/min (>60); POTASSIUM 3.9 mmol/L (3.5-5.1); PROTEIN TOTAL SERUM 5.9 g/dL (6.0-8.3)
[2017-01-29 04:27] LABS: DIGOXIN (LANOXIN) 2.1 ng/ml (1.0-2.0)
[2017-01-29 04:52] LABS: ARTERIAL BLD GAS O2 SATURATION 97.5 % (90.0-100.0); ARTERIAL BLOOD GAS CARBOXY HB 1.2 %sat (0.0-9.0); ARTERIAL BLOOD GAS HCO3 30.8 mmol/L; ARTERIAL BLOOD GAS MET HB 1.2 %sat (0.0-2.0); ARTERIAL BLOOD GAS pH 7.381 (7.350-7.450)
[2017-01-29 05:11] LABS: ARTERIAL BLOOD GAS PCO2 51.9 mmHg (35.0-45.0)
[2017-01-29 05:12] LABS: ARTERIAL BLOOD GAS ALLEN TEST NORMAL; ARTERIAL BLOOD GAS ART SITE LEFT RADIAL; ARTERIAL BLOOD GAS DELIVERY BIPAP 16/6 R16; ARTERIAL DRAW? YES
[2017-01-29 08:03] LABS: ARTERIAL BLOOD GAS ART SITE RIGHT RADIAL
[2017-01-30 04:42] LABS: ARTERIAL BLD GAS O2 SATURATION 91.6 % (90.0-100.0); ARTERIAL BLOOD GAS CARBOXY HB 1.3 %sat (0.0-9.0); ARTERIAL BLOOD GAS HCO3 33.7 mmol/L; ARTERIAL BLOOD GAS pH 7.336 (7.350-7.450)
[2017-01-30 04:56] LABS: ARTERIAL BLOOD GAS ALLEN TEST NORMAL; ARTERIAL BLOOD GAS ART SITE LEFT RADIAL; ARTERIAL BLOOD GAS DELIVERY BIPAP 16/6 R16; ARTERIAL BLOOD GAS PCO2 63.1 mmHg (35.0-45.0); ARTERIAL DRAW? YES
[2017-01-30 05:18] LABS: BASOPHIL% 0.1 % (0-2.5); EOSINOPHIL% 0.1 % (0.0-7.0); HEMATOCRIT 28.7 % (35.0-45.0); HEMOGLOBIN 9.2 gm/dL (12.0-16.0); LYMPHOCYTE# 0.3 X10e3 (1.0-3.5); LYMPHOCYTE% 5.5 % (17.0-45.0); MEAN CELL VOLUME 87.2 FL (83-96); MEAN CORPUSCULAR HEMOGLOBIN 27.8 PG (28-34); MEAN CORPUSCULAR HGB CONC 31.9 g/dL (30-36); MEAN PLATELET VOLUME 8.2 FL (6.5-11.5); MONOCYTE# 0.2 X10e3 (0-1.0); MONOCYTE% 4.5 % (3.0-12.0); NEUTROPHIL# 4.4 X10e3 (1.5-7.1); NEUTROPHIL% 89.8 % (40-75); PLATELET COUNT 203 X10e3 (140-420); RED BLOOD COUNT 3.29 X10e (3.90-5.30)
[2017-01-30 05:45] LABS: WHITE BLOOD COUNT 4.9 X10e3 (4.0-10.5)
[2017-01-30 05:46] LABS: DIFF IND NO
[2017-01-30 06:30] LABS: ALBUMIN SERUM 3.1 g/dL (3.5-5.0); BUN/CREATININE RATIO 27.69; CALCIUM SERUM 7.9 mg/dL (8.4-10.2); CREATININE SERUM 1.3 mg/dL (0.6-1.4); GLOM FILT RATE Estimated 37.4 mL/min (>60); POTASSIUM 3.9 mmol/L (3.5-5.1); PROTEIN TOTAL SERUM 5.7 g/dL (6.0-8.3)
[2017-01-31 04:08] LABS: ARTERIAL BLD GAS O2 SATURATION 95.9 % (90.0-100.0); ARTERIAL BLOOD GAS CARBOXY HB 1.1 %sat (0.0-9.0); ARTERIAL BLOOD GAS HCO3 34.3 mmol/L; ARTERIAL BLOOD GAS MET HB 0.5 %sat (0.0-2.0); ARTERIAL BLOOD GAS PO2 89.6 mmHg (80.0-100); ARTERIAL BLOOD GAS pH 7.374 (7.350-7.450)
[2017-01-31 04:09] LABS: ARTERIAL BLOOD GAS ALLEN TEST NORMAL; ARTERIAL BLOOD GAS ART SITE LEFT RADIAL; ARTERIAL BLOOD GAS DELIVERY BIPAP 16/6; ARTERIAL BLOOD GAS PCO2 58.8 mmHg (35.0-45.0); ARTERIAL DRAW? YES
[2017-01-31 04:58] LABS: DIFF IND NO; HEMATOCRIT 29.5 % (35.0-45.0); HEMOGLOBIN 9.5 gm/dL (12.0-16.0); LYMPHOCYTE# 0.2 X10e3 (1.0-3.5); LYMPHOCYTE% 5.6 % (17.0-45.0); MEAN CELL VOLUME 86.6 FL (83-96); MEAN CORPUSCULAR HEMOGLOBIN 27.9 PG (28-34); MEAN CORPUSCULAR HGB CONC 32.2 g/dL (30-36); MEAN PLATELET VOLUME 7.9 FL (6.5-11.5); MONOCYTE# 0.2 X10e3 (0-1.0); MONOCYTE% 5.4 % (3.0-12.0); NEUTROPHIL# 3.3 X10e3 (1.5-7.1); PLATELET COUNT 222 X10e3 (140-420); RED CELL DISTRIBUTION WIDTH 15.9 % (11.0-15.5); WHITE BLOOD COUNT 3.7 X10e3 (4.0-10.5)
[2017-01-31 05:35] LABS: ALBUMIN SERUM 3.3 g/dL (3.5-5.0); BILIRUBIN,TOTAL 1.1 mg/dL (0.2-2.0); CALCIUM SERUM 8.1 mg/dL (8.4-10.2); CREATININE SERUM 1.2 mg/dL (0.6-1.4); GLOM FILT RATE Estimated 41.2 mL/min (>60); POTASSIUM 3.8 mmol/L (3.5-5.1); PROTEIN TOTAL SERUM 5.7 g/dL (6.0-8.3)
[2017-02-01 04:00] LABS: BASOPHIL% 0.2 % (0-2.5); HEMATOCRIT 30.3 % (35.0-45.0); HEMOGLOBIN 9.7 gm/dL (12.0-16.0); LYMPHOCYTE# 0.2 X10e3 (1.0-3.5); LYMPHOCYTE% 4.9 % (17.0-45.0); MEAN CELL VOLUME 87.8 FL (83-96); MEAN CORPUSCULAR HGB CONC 31.9 g/dL (30-36); MEAN PLATELET VOLUME 7.8 FL (6.5-11.5); MONOCYTE# 0.4 X10e3 (0-1.0); NEUTROPHIL# 3.7 X10e3 (1.5-7.1); NEUTROPHIL% 85.9 % (40-75); PLATELET COUNT 286 X10e3 (140-420); RED BLOOD COUNT 3.46 X10e (3.90-5.30); RED CELL DISTRIBUTION WIDTH 16.4 % (11.0-15.5); WHITE BLOOD COUNT 4.3 X10e3 (4.0-10.5)
[2017-02-01 04:00] LABS: ARTERIAL BLD GAS O2 SATURATION 94.1 % (90.0-100.0); ARTERIAL BLOOD GAS CARBOXY HB 1.2 %sat (0.0-9.0); ARTERIAL BLOOD GAS HCO3 35.9 mmol/L; ARTERIAL BLOOD GAS MET HB 1.1 %sat (0.0-2.0); ARTERIAL BLOOD GAS pH 7.407 (7.350-7.450)
[2017-02-01 04:01] LABS: DIFF IND NO
[2017-02-01 04:08] LABS: ARTERIAL BLOOD GAS ALLEN TEST NORMAL; ARTERIAL BLOOD GAS ART SITE LEFT RADIAL; ARTERIAL BLOOD GAS DELIVERY BIPAP 16/6; ARTERIAL BLOOD GAS PCO2 57.1 mmHg (35.0-45.0); ARTERIAL BLOOD GAS PO2 78.5 mmHg (80.0-100); ARTERIAL DRAW? YES
[2017-02-01 04:28] LABS: ALBUMIN SERUM 3.5 g/dL (3.5-5.0); BILIRUBIN,TOTAL 1.2 mg/dL (0.2-2.0); BUN/CREATININE RATIO 36.92; CALCIUM SERUM 8.4 mg/dL (8.4-10.2); CREATININE SERUM 1.3 mg/dL (0.6-1.4); GLOM FILT RATE Estimated 37.4 mL/min (>60); POTASSIUM 3.8 mmol/L (3.5-5.1)
[2017-02-02 04:34] LABS: ARTERIAL BLD GAS O2 SATURATION 96.8 % (90.0-100.0); ARTERIAL BLOOD GAS CARBOXY HB 1.2 %sat (0.0-9.0); ARTERIAL BLOOD GAS HCO3 38.5 mmol/L; ARTERIAL BLOOD GAS pH 7.443 (7.350-7.450)
[2017-02-02 04:47] LABS: BASOPHIL% 0.1 % (0-2.5); HEMATOCRIT 28.9 % (35.0-45.0); LYMPHOCYTE# 0.2 X10e3 (1.0-3.5); LYMPHOCYTE% 4.6 % (17.0-45.0); MEAN CELL VOLUME 88.8 FL (83-96); MEAN CORPUSCULAR HEMOGLOBIN 27.7 PG (28-34); MEAN CORPUSCULAR HGB CONC 31.2 g/dL (30-36); MEAN PLATELET VOLUME 8.1 FL (6.5-11.5); MONOCYTE# 0.4 X10e3 (0-1.0); MONOCYTE% 10.9 % (3.0-12.0); NEUTROPHIL# 3.4 X10e3 (1.5-7.1); NEUTROPHIL% 84.4 % (40-75); PLATELET COUNT 246 X10e3 (140-420); RED BLOOD COUNT 3.26 X10e (3.90-5.30); RED CELL DISTRIBUTION WIDTH 16.6 % (11.0-15.5); WHITE BLOOD COUNT 4.1 X10e3 (4.0-10.5)
[2017-02-02 04:48] LABS: DIFF IND NO
[2017-02-02 04:51] LABS: ARTERIAL BLOOD GAS ALLEN TEST NORMAL; ARTERIAL BLOOD GAS ART SITE LEFT RADIAL; ARTERIAL BLOOD GAS DELIVERY BIPAP 16/6; ARTERIAL BLOOD GAS PCO2 56.4 mmHg (35.0-45.0); ARTERIAL DRAW? YES
[2017-02-02 05:40] LABS: ALBUMIN SERUM 3.4 g/dL (3.5-5.0); BILIRUBIN,TOTAL 1.1 mg/dL (0.2-2.0); CALCIUM SERUM 8.4 mg/dL (8.4-10.2); CREATININE SERUM 1.4 mg/dL (0.6-1.4); GLOM FILT RATE Estimated 34.2 mL/min (>60); POTASSIUM 3.3 mmol/L (3.5-5.1); PROTEIN TOTAL SERUM 5.6 g/dL (6.0-8.3)
[2017-02-03 05:27] LABS: BASOPHIL% 0.1 % (0-2.5); HEMATOCRIT 27.4 % (35.0-45.0); HEMOGLOBIN 8.6 gm/dL (12.0-16.0); LYMPHOCYTE# 0.2 X10e3 (1.0-3.5); MEAN CELL VOLUME 88.7 FL (83-96); MEAN CORPUSCULAR HEMOGLOBIN 27.8 PG (28-34); MEAN CORPUSCULAR HGB CONC 31.4 g/dL (30-36); MEAN PLATELET VOLUME 8.3 FL (6.5-11.5); MONOCYTE# 0.3 X10e3 (0-1.0); MONOCYTE% 7.2 % (3.0-12.0); NEUTROPHIL# 3.7 X10e3 (1.5-7.1); NEUTROPHIL% 87.7 % (40-75); PLATELET COUNT 193 X10e3 (140-420); RED BLOOD COUNT 3.09 X10e (3.90-5.30); RED CELL DISTRIBUTION WIDTH 15.9 % (11.0-15.5); WHITE BLOOD COUNT 4.2 X10e3 (4.0-10.5)
[2017-02-03 05:28] LABS: DIFF IND NO
[2017-02-03 08:15] LABS: ALBUMIN SERUM 3.2 g/dL (3.5-5.0); BILIRUBIN,TOTAL 1.3 mg/dL (0.2-2.0); BUN/CREATININE RATIO 36.42; CALCIUM SERUM 8.5 mg/dL (8.4-10.2); CREATININE SERUM 1.4 mg/dL (0.6-1.4); GLOM FILT RATE Estimated 34.2 mL/min (>60); POTASSIUM 3.4 mmol/L (3.5-5.1); PROTEIN TOTAL SERUM 5.4 g/dL (6.0-8.3)
[2017-02-04 03:51] LABS: ARTERIAL BLD GAS O2 SATURATION 92.1 % (90.0-100.0); ARTERIAL BLOOD GAS HCO3 38.5 mmol/L; ARTERIAL BLOOD GAS MET HB 0.6 %sat (0.0-2.0); ARTERIAL BLOOD GAS PCO2 59.8 mmHg (35.0-45.0); ARTERIAL BLOOD GAS PO2 66.1 mmHg (80.0-100); ARTERIAL BLOOD GAS pH 7.417 (7.350-7.450); ARTERIAL DRAW? YES
[2017-02-04 03:52] LABS: ARTERIAL BLOOD GAS ALLEN TEST NORMAL; ARTERIAL BLOOD GAS ART SITE LEFT RADIAL; ARTERIAL BLOOD GAS DELIVERY OXYMIZER
[2017-02-04 05:22] LABS: BASOPHIL% 0.2 % (0-2.5); HEMATOCRIT 26.4 % (35.0-45.0); HEMOGLOBIN 8.3 gm/dL (12.0-16.0); LYMPHOCYTE# 0.3 X10e3 (1.0-3.5); LYMPHOCYTE% 5.8 % (17.0-45.0); MEAN CELL VOLUME 89.8 FL (83-96); MEAN CORPUSCULAR HEMOGLOBIN 28.2 PG (28-34); MEAN CORPUSCULAR HGB CONC 31.4 g/dL (30-36); MEAN PLATELET VOLUME 8.5 FL (6.5-11.5); MONOCYTE# 0.6 X10e3 (0-1.0); MONOCYTE% 12.2 % (3.0-12.0); NEUTROPHIL# 3.8 X10e3 (1.5-7.1); NEUTROPHIL% 81.8 % (40-75); PLATELET COUNT 172 X10e3 (140-420); RED BLOOD COUNT 2.94 X10e (3.90-5.30); RED CELL DISTRIBUTION WIDTH 16.2 % (11.0-15.5); WHITE BLOOD COUNT 4.6 X10e3 (4.0-10.5)
[2017-02-04 05:30] LABS: DIFF IND NO
[2017-02-04 05:42] LABS: ALBUMIN SERUM 3.1 g/dL (3.5-5.0); BILIRUBIN,TOTAL 1.4 mg/dL (0.2-2.0); BUN/CREATININE RATIO 37.69; CALCIUM SERUM 8.2 mg/dL (8.4-10.2); CREATININE SERUM 1.3 mg/dL (0.6-1.4); GLOM FILT RATE Estimated 37.4 mL/min (>60); MAGNESIUM 2.4 mg/dL (1.6-3.0); POTASSIUM 3.5 mmol/L (3.5-5.1); PROTEIN TOTAL SERUM 5.2 g/dL (6.0-8.3)
[2017-02-05 04:11] LABS: ARTERIAL BLD GAS O2 SATURATION 91.9 % (90.0-100.0); ARTERIAL BLOOD GAS CARBOXY HB 1.3 %sat (0.0-9.0); ARTERIAL BLOOD GAS HCO3 38.5 mmol/L; ARTERIAL BLOOD GAS MET HB 1.1 %sat (0.0-2.0); ARTERIAL BLOOD GAS pH 7.451 (7.350-7.450)
[2017-02-05 04:13] LABS: ARTERIAL BLOOD GAS ALLEN TEST NORMAL; ARTERIAL BLOOD GAS ART SITE LEFT RADIAL; ARTERIAL BLOOD GAS DELIVERY BIPAP 16/6; ARTERIAL BLOOD GAS PCO2 55.4 mmHg (35.0-45.0); ARTERIAL BLOOD GAS PO2 65.8 mmHg (80.0-100); ARTERIAL DRAW? YES
[2017-02-05 04:54] LABS: BASOPHIL% 0.2 % (0-2.5); HEMATOCRIT 26.4 % (35.0-45.0); HEMOGLOBIN 8.2 gm/dL (12.0-16.0); LYMPHOCYTE# 0.2 X10e3 (1.0-3.5); LYMPHOCYTE% 4.3 % (17.0-45.0); MEAN CELL VOLUME 88.9 FL (83-96); MEAN CORPUSCULAR HEMOGLOBIN 27.6 PG (28-34); MEAN PLATELET VOLUME 8.7 FL (6.5-11.5); MONOCYTE# 0.2 X10e3 (0-1.0); MONOCYTE% 5.4 % (3.0-12.0); NEUTROPHIL# 3.2 X10e3 (1.5-7.1); NEUTROPHIL% 90.1 % (40-75); PLATELET COUNT 159 X10e3 (140-420); RED BLOOD COUNT 2.97 X10e (3.90-5.30); RED CELL DISTRIBUTION WIDTH 16.2 % (11.0-15.5); WHITE BLOOD COUNT 3.6 X10e3 (4.0-10.5)
[2017-02-05 04:55] LABS: DIFF IND NO
[2017-02-05 05:32] LABS: BILIRUBIN,TOTAL 1.3 mg/dL (0.2-2.0); BUN/CREATININE RATIO 39.09; CALCIUM SERUM 8.5 mg/dL (8.4-10.2); CREATININE SERUM 1.1 mg/dL (0.6-1.4); GLOM FILT RATE Estimated 45.8 mL/min (>60); POTASSIUM 3.9 mmol/L (3.5-5.1); PROTEIN TOTAL SERUM 5.2 g/dL (6.0-8.3)
[2017-02-05 11:43] LABS: URINE APPEARANCE CLEAR; URINE BILIRUBIN NEG (NEG); URINE BLOOD 3+ (NEG); URINE COLOR YELLOW; URINE GLUCOSE >1000 MG/DL (NEG); URINE KETONE NEG (NEG); URINE LEUKOCYTE ESTERASE 1+ (NEG); URINE NITRATE NEG (NEG); URINE PROTEIN TRACE (NEG); URINE SPECIFIC GRAVITY 1.016 (1.003-1.035)
[2017-02-05 11:45] LABS: CULTURE INDICATED? YES; URINE BACTERIA AUWI NEG (NEGATIVE); URINE SQUAMOUS EPITHELIAL CELL NONE SEEN /[HPF]
[2017-02-05 11:57] LABS: URINE YEAST PRESENT
[2017-02-05 12:15] LABS: SODIUM URINE RANDOM 101 mmol/L
[2017-02-06 04:34] LABS: ARTERIAL BLD GAS O2 SATURATION 94.6 % (90.0-100.0); ARTERIAL BLOOD GAS CARBOXY HB 1.5 %sat (0.0-9.0); ARTERIAL BLOOD GAS HCO3 38.8 mmol/L; ARTERIAL BLOOD GAS pH 7.488 (7.350-7.450)
[2017-02-06 04:37] LABS: ARTERIAL BLOOD GAS ALLEN TEST NORMAL; ARTERIAL BLOOD GAS ART SITE RIGHT RADIAL; ARTERIAL BLOOD GAS DELIVERY OXYMIZER; ARTERIAL BLOOD GAS PCO2 51.2 mmHg (35.0-45.0); ARTERIAL BLOOD GAS PO2 76.6 mmHg (80.0-100); ARTERIAL DRAW? YES
[2017-02-06 05:04] LABS: BASOPHIL% 0.2 % (0-2.5); HEMATOCRIT 28.3 % (35.0-45.0); HEMOGLOBIN 8.8 gm/dL (12.0-16.0); LYMPHOCYTE# 0.2 X10e3 (1.0-3.5); MEAN CELL VOLUME 88.1 FL (83-96); MEAN CORPUSCULAR HEMOGLOBIN 27.6 PG (28-34); MEAN CORPUSCULAR HGB CONC 31.3 g/dL (30-36); MEAN PLATELET VOLUME 9.4 FL (6.5-11.5); MONOCYTE# 0.5 X10e3 (0-1.0); MONOCYTE% 5.8 % (3.0-12.0); NEUTROPHIL# 7.2 X10e3 (1.5-7.1); PLATELET COUNT 182 X10e3 (140-420); RED BLOOD COUNT 3.21 X10e (3.90-5.30); RED CELL DISTRIBUTION WIDTH 16.1 % (11.0-15.5)
[2017-02-06 05:11] LABS: DIFF IND NO; WHITE BLOOD COUNT 7.9 X10e3 (4.0-10.5)
[2017-02-06 05:28] LABS: ALBUMIN SERUM 2.8 g/dL (3.5-5.0); BILIRUBIN,TOTAL 1.5 mg/dL (0.2-2.0); CALCIUM SERUM 8.5 mg/dL (8.4-10.2); GLOM FILT RATE Estimated 51.4 mL/min (>60); MAGNESIUM 2.3 mg/dL (1.6-3.0); PHOSPHOROUS 2.9 mg/dL (2.5-4.6); POTASSIUM 3.1 mmol/L (3.5-5.1); PROTEIN TOTAL SERUM 5.1 g/dL (6.0-8.3)
[2017-02-07 05:43] LABS: HEMATOCRIT 24.2 % (35.0-45.0); HEMOGLOBIN 7.7 gm/dL (12.0-16.0); MEAN CELL VOLUME 87.8 FL (83-96); MEAN CORPUSCULAR HGB CONC 31.9 g/dL (30-36); MEAN PLATELET VOLUME 9.3 FL (6.5-11.5); RED BLOOD COUNT 2.76 X10e (3.90-5.30); RED CELL DISTRIBUTION WIDTH 16.4 % (11.0-15.5); WHITE BLOOD COUNT 6.6 X10e3 (4.0-10.5)
[2017-02-07 06:51] LABS: BUN/CREATININE RATIO 35.83; CALCIUM SERUM 8.2 mg/dL (8.4-10.2); CREATININE SERUM 1.2 mg/dL (0.6-1.4); GLOM FILT RATE Estimated 41.2 mL/min (>60)
[2017-02-07 23:56] LABS: HEMATOCRIT 26.1 % (35.0-45.0); HEMOGLOBIN 8.3 gm/dL (12.0-16.0)
[2017-02-08 05:39] LABS: BASOPHIL% 0.1 % (0-2.5); HEMATOCRIT 25.7 % (35.0-45.0); HEMOGLOBIN 8.2 gm/dL (12.0-16.0); LYMPHOCYTE# 0.2 X10e3 (1.0-3.5); LYMPHOCYTE% 2.2 % (17.0-45.0); MEAN CELL VOLUME 87.9 FL (83-96); MEAN CORPUSCULAR HGB CONC 31.9 g/dL (30-36); MEAN PLATELET VOLUME 9.9 FL (6.5-11.5); MONOCYTE# 0.4 X10e3 (0-1.0); MONOCYTE% 4.8 % (3.0-12.0); NEUTROPHIL% 92.9 % (40-75); PLATELET COUNT 149 X10e3 (140-420); RED BLOOD COUNT 2.92 X10e (3.90-5.30); RED CELL DISTRIBUTION WIDTH 16.4 % (11.0-15.5); WHITE BLOOD COUNT 7.6 X10e3 (4.0-10.5)
[2017-02-08 05:45] LABS: DIFF IND NO
[2017-02-08 06:33] LABS: CALCIUM SERUM 8.1 mg/dL (8.4-10.2); GLOM FILT RATE Estimated 51.4 mL/min (>60); POTASSIUM 3.7 mmol/L (3.5-5.1)
[2017-02-09 04:05] LABS: ARTERIAL BLD GAS O2 SATURATION 93.9 % (90.0-100.0); ARTERIAL BLOOD GAS ART SITE RIGHT BRACHIAL; ARTERIAL BLOOD GAS CARBOXY HB 1.4 %sat (0.0-9.0); ARTERIAL BLOOD GAS DELIVERY NASAL CANNULA; ARTERIAL BLOOD GAS HCO3 33.5 mmol/L; ARTERIAL BLOOD GAS MET HB 0.8 %sat (0.0-2.0); ARTERIAL BLOOD GAS PCO2 51.6 mmHg (35.0-45.0); ARTERIAL BLOOD GAS PO2 69.2 mmHg (80.0-100); ARTERIAL DRAW? YES
[2017-02-09 07:03] LABS: BASOPHIL% 0.2 % (0-2.5); HEMATOCRIT 28.8 % (35.0-45.0); HEMOGLOBIN 9.1 gm/dL (12.0-16.0); LYMPHOCYTE# 0.2 X10e3 (1.0-3.5); LYMPHOCYTE% 1.9 % (17.0-45.0); MEAN CELL VOLUME 87.8 FL (83-96); MEAN CORPUSCULAR HEMOGLOBIN 27.9 PG (28-34); MEAN CORPUSCULAR HGB CONC 31.7 g/dL (30-36); MEAN PLATELET VOLUME 9.6 FL (6.5-11.5); MONOCYTE# 1.1 X10e3 (0-1.0); MONOCYTE% 8.7 % (3.0-12.0); NEUTROPHIL# 11.1 X10e3 (1.5-7.1); NEUTROPHIL% 89.2 % (40-75); PLATELET COUNT 197 X10e3 (140-420); RED BLOOD COUNT 3.28 X10e (3.90-5.30); RED CELL DISTRIBUTION WIDTH 16.8 % (11.0-15.5)
[2017-02-09 07:07] LABS: DIFF IND NO; WHITE BLOOD COUNT 12.5 X10e3 (4.0-10.5)
[2017-02-09 07:40] LABS: ALBUMIN SERUM 2.8 g/dL (3.5-5.0); BILIRUBIN,TOTAL 1.3 mg/dL (0.2-2.0); BUN/CREATININE RATIO 39.09; CALCIUM SERUM 8.2 mg/dL (8.4-10.2); CREATININE SERUM 1.1 mg/dL (0.6-1.4); GLOM FILT RATE Estimated 45.8 mL/min (>60); POTASSIUM 3.9 mmol/L (3.5-5.1); PROTEIN TOTAL SERUM 5.1 g/dL (6.0-8.3)
[2017-02-10 05:39] LABS: HEMATOCRIT 25.6 % (35.0-45.0); HEMOGLOBIN 8.3 gm/dL (12.0-16.0); MEAN CELL VOLUME 87.5 FL (83-96); MEAN CORPUSCULAR HEMOGLOBIN 28.2 PG (28-34); MEAN CORPUSCULAR HGB CONC 32.3 g/dL (30-36); MEAN PLATELET VOLUME 9.3 FL (6.5-11.5); RED BLOOD COUNT 2.93 X10e (3.90-5.30); RED CELL DISTRIBUTION WIDTH 16.7 % (11.0-15.5); WHITE BLOOD COUNT 7.5 X10e3 (4.0-10.5)
[2017-02-10 06:27] LABS: GLOM FILT RATE Estimated 51.4 mL/min (>60); MAGNESIUM 2.5 mg/dL (1.6-3.0); POTASSIUM 3.8 mmol/L (3.5-5.1)
[2017-02-10 11:00] LABS: ARTERIAL BLOOD GAS HCO3 9.5 mmol/L; ARTERIAL BLOOD GAS PCO2 66.2 mmHg (35.0-45.0)
[2017-02-10 11:01] LABS: ARTERIAL BLD GAS O2 SATURATION 98.5 % (90.0-100.0)
[2017-02-10 11:05] LABS: ARTERIAL BLOOD GAS ART SITE LEFT BRACHIAL; ARTERIAL BLOOD GAS CARBOXY HB 1.2 %sat (0.0-9.0); ARTERIAL BLOOD GAS DELIVERY NON REBREATHER MASK; ARTERIAL BLOOD GAS MET HB 0.8 %sat (0.0-2.0); ARTERIAL DRAW? YES
[2017-02-10 15:06] LABS: ARTERIAL BLOOD GAS pH 7.292 (7.350-7.450)
[2017-02-10 15:09] LABS: ARTERIAL BLOOD GAS PCO2 73.1 mmHg (35.0-45.0)
[2017-02-10 15:10] LABS: ARTERIAL BLOOD GAS HCO3 9.5 mmol/L; ARTERIAL BLOOD GAS MET HB 0.9 %sat (0.0-2.0); ARTERIAL DRAW? YES
[2017-02-10 15:13] LABS: ARTERIAL BLOOD GAS ART SITE LEFT BRACHIAL; ARTERIAL BLOOD GAS DELIVERY BIPAP
== END 2017-02-11 17:35 | DRG 177 ==
LOC: CED 09:15 → CICCU3 11:45 → CEDOF 11:45 → CED 11:55 → CEDOF 11:55 → CICCU3 15:08 → CEDOF 15:08 → CICCU3 15:08 → C5B 02-08 16:27
PROVIDERS: Emergency Medicine; Hospitalist; Internal Medicine; Internal Medicine Cardiovascular Disease; Internal Medicine Gastroenterology; Internal Medicine Nephrology; Nurse Practitioner; Physician Assistant Medical
PROC: 05H333Z Insertion of Infusion Device into Right Innominate Vein, Percutaneous Approach (ICD-10-PCS; 2017-01-31)
PROC: 0DJ08ZZ Inspection of Upper Intestinal Tract, Via Natural or Artificial Opening Endoscopic (ICD-10-PCS; principal; 2017-02-04 07:06)
DX: J69.0 Pneumonitis due to inhalation of food and vomit (principal); J96.01 Acute respiratory failure with hypoxia; N17.9 Acute kidney failure, unspecified; I50.23 Acute on chronic systolic (congestive) heart failure; E87.2 Acidosis; J96.02 Acute respiratory failure with hypercapnia; E87.3 Alkalosis; E87.0 Hyperosmolality and hypernatremia; K56.7 Ileus, unspecified; I13.0 Hypertensive heart and chronic kidney disease with heart failure and stage 1 through stage 4 chronic kidney disease, or unspecified chronic kidney disease; J44.1 Chronic obstructive pulmonary disease with (acute) exacerbation; R13.12 Dysphagia, oropharyngeal phase; I25.5 Ischemic cardiomyopathy; I73.9 Peripheral vascular disease, unspecified; I25.10 Atherosclerotic heart disease of native coronary artery without angina pectoris; R74.9 Abnormal serum enzyme level, unspecified; E03.9 Hypothyroidism, unspecified; Z86.711 Personal history of pulmonary embolism; Z95.0 Presence of cardiac pacemaker; Z66 Do not resuscitate; Z95.5 Presence of coronary angioplasty implant and graft; I48.2 Chronic atrial fibrillation; I08.1 Rheumatic disorders of both mitral and tricuspid valves; Z99.81 Dependence on supplemental oxygen; Z87.891 Personal history of nicotine dependence; I77.811 Abdominal aortic ectasia; E78.5 Hyperlipidemia, unspecified; N18.3 Chronic kidney disease, stage 3 (moderate); D63.1 Anemia in chronic kidney disease; Z79.82 Long term (current) use of aspirin; E87.6 Hypokalemia; Z51.5 Encounter for palliative care
CPT/HCPCS: 36415; 36600; 71010; 71020; 74000; 74230; 80048; 80053; 80061; 80076; 80162; 80200; 80202; 81003; 82308; 82436; 82550; 82553; 82803; 82947; 83036; 83605; 83735; 83880; 84100; 84132; 84300; 84443; 84484; 85014; 85018; 85025; 85027; 85610; 85730; 87040; 87086; 92526; 92610; 92611; 93005; 94640; 94660; 94760; 94761; 97110; 97112; 97163; 97167; 97530; 97535; 99291; G8978-GP; G8979-GP; G8987-GO; G8988-GO; G8996-GN; G8997-GN; J0330; J0360; J1120; J1160; J1650; J1815; J1940; J2060; J2250; J2270; J2405; J2543; J2765; J2920; J3260; J3370; J3411; J3490